=== PATIENT | male | born 1940 | race Caucasian/White ===

== ENCOUNTER 2020-06-08 11:05 | Inpatient (IN) | payer MEDICARE, SELFPAY ==
[2020-06-08] VITALS (24 sets, daily range): BP systolic 88–149; BP diastolic 62–91; PULSE 68–136; RESP 6–27; TEMP 36.3–37.7; O2SAT 83–96; BMI 26.6
--- NOTE | 2020-06-08 11:13 | XR_ITS ---
WS: [id number] Portable AP upright chest, 06/08/2020 Clinical Data: covid Comparison: Portable chest, 01/01/2017. Findings: Bilateral patchy opacities are present which may represent acute pneumonia. No nodules, mas ses or effusions are seen. The heart is normal. The aortic arch and descending aorta show calcificati on and tortuosity. The pulmonary vascularity is not increased. There are 3 orthopedic anchors in the right humeral head. Monitor leads are on the upper abdominal wall and upper chest. XR/XR chest 1V portable [id number] Impression: 1. Patchy bilateral opacities which may represent pneumonia. 2. Recommend repeat chest x-ray in one to 2 days. 3. Atherosclerosis.
--- NOTE | 2020-06-08 11:27 | ED_ITS ---
HPI - SOB/Dyspnea General: Chief Complaint: Shortness of Breath/Dyspnea Stated Complaint: covid + low o2 sent by urgent care Time Seen by Provider: 06/08/20 11:20 Source: patient Mode of arrival: ambulatory Limitations: no limitations History of Present Illness: HPI Narrative: 79-year-old male who tested positive for COVID roughly 2 weeks ago. Patient was is primary care office today had a saturation of 70% on room air. Patient was in the low 80s here on room air and is currently on 6 L. Patient states he has mild shortness of breath along with low-grade fevers. He has had a cough. Denies any worsening or improving factors Associated symptoms: Deny abdominal pain, chest pain, fever(s), nausea or vomiting Review of Systems Const: Denies: fever(s), chills, body aches or change in appetite Eyes: Denies: blurry vision or eye discomfort ENMT: Denies: throat pain or dental pain Card: Denies: chest pain Resp: Reports: dyspnea GI: Denies: abdominal pain, nausea, vomiting or diarrhea : Denies: dysuria Musc: Denies: neck pain or back pain Skin/Breast: Denies: rash Neuro: Denies: headache(s) Psych: Denies: depression Gabriel/Lymph: Denies: easy bruising All/Imm: Denies: urticaria PFSH ED PFSH: Medical History (Updated 06/08/20 @ 13:26 by Ciro Stone MD) Atrial fibrillation Patient is known to have intolerance to oral anticoagulant causing bleeding High risk medication use Hyperlipidemia Hypertension Peripheral arterial occlusive disease Surgical History H/O hernia repair S/P aneurysm repair Family History Other Diabetes Social History Smoking and tobacco status: current every day smoker Alcohol intake: never Physical Exam Const: COMMON NORMALS: patient oriented x3 and healthy appearing GENERAL APPEARANCE: ill appearing HENMT: COMMON NORMALS: normocephalic and atraumatic HEAD & SCALP: normocephalic and atraumatic Eye: COMMON NORMALS: Equal, round and reactive pupils present and EOMs intact bilaterally PUPIL: Yes Equal, round and reactive pupils present Neck/C-Spine: COMMON NORMALS: full ROM and supple Chest: COMMONS NORMALS: normal inspection of the chest and normal palpation of entire chest wall Resp: COMMON NORMALS: No retractions and clear to auscultation bilaterally EFFORT & INSPECTION: Yes tachypneic, Yes respiratory distress and Yes labored AUSCULTATION: clear to auscultation bilaterally Cardio: COMMON NORMALS: regular rate, regular rhythm and No murmurs present (Cardio) RATE: regular rate RHYTHM: regular rhythm GI: COMMON NORMALS: Normal to inspection, nondistended, normoactive bowel sounds present, Soft to palpation, non-tender and no masses PALPATION: Yes Soft to palpation Extremity: COMMON NORMALS: normal to inspection and full ROM Neuro: COMMON NORMALS: patient oriented x3, moves all extremities and no focal motor deficits Psych: COMMON NORMALS: mental status grossly normal, Normal thought process present and cooperative THOUGHT PROCESS: Normal thought process present Skin: COMMON NORMALS: no rashes or lesions noted and no wounds GENERAL SKIN EXAM: no rashes or lesions noted Course Vital Signs: Vital signs: Vital Signs Temperature 99.8 F H 06/08/20 11:16 Pulse Rate 136 H 06/08/20 11:16 Respiratory Rate 20 H 06/08/20 11:16 Blood Pressure 149/91 06/08/20 11:16 Pulse Oximetry 83 L 06/08/20 11:16 MDM - SOB/Dyspnea MDM Narrative: Medical decision making narrative: Patient presents here with dyspnea and is COVID-19 positive. Patient's x-ray shows diffuse infiltrates consistent with COVID. Patient is requiring oxygen here as well. Patient given Decadron along with antiviral. I spoke to hospitalist and will admit to the viral ICU. Lab Data: Labs: Lab Results 06/08/20 06/08/20 06/08/20 Range/Units 11:20 11:47 11:47 WBC 3.5 L (4.0-10.0) 10^3/ uL RBC 4.78 (4.1-5.3) 10^6/u L Hgb 13.9 (11.7-16.6) g/dL Hct 43.8 (42.0-52.0) % MCV 91.6 (80-94) fL MCH 29.1 (28.0-34.0) pg MCHC 31.7 (30.0-36.0) g/dL RDW 14.1 (12.1-15.1) % Plt Count 182 (130-400) 10^3/c mm MPV 11.1 H (7.4-10.4) fL Neut % (Auto) 73.1 % Lymph % (Auto) 15.0 % [place] % (Auto) 11.0 % Eos % (Auto) 0.0 % Baso % (Auto) 0.3 % Neut # (Auto) 2.59 (1.8-7.7) 10^3/u L Lymph # (Auto) 0.5 L (0.8-4.8) 10^3/u L Amite # (Auto) 0.4 (0.2-0.9) 10^3/u L Eos # (Auto) 0.0 (0.0-0.8) 10^3/u L Baso # (Auto) 0.0 (0.0-0.1) 10^3/u L Nucleated RBC % (a uto) 0 % Nucleated RBCs # 0.0 /100WBC Fibrinogen 858 H (174-498) mg/dL Specimen Type Arterial Sample Site Radial, right ABG pH 7.45 (7.35-7.45) ABG pCO2 27.0 L (35-45) mmHg ABG pO2 63.2 L (80.0-100.0) mmH g ABG HCO3 18.8 L (22-26) mmol/L ABG Base Excess -3.7 L (-2.0-2.0) mmol/ L Lb Test Pos Hematocrit 43.5 (42-52) % O2 Delivery Device Nc O2 Liters/Min 6.0 % Beverage Steward ID [place] Sodium (136-145) mmol/L Potassium (3.5-5.1) mmol/L Chloride (98-107) mmol/L Carbon Dioxide (22-29) mmol/L Anion Gap (5-19) BUN (8-23) mg/dL Creatinine (0.7-1.2) mg/dL GFR Calculation Glucose (65-115) mg/dL Calculated Osmolal ity (285-295) mOsm/k g Lactic Acid (0.5-2.2) mmol/L Calcium (8.5-10.5) mg/dL Ferritin (30-400) ng/mL Total Bilirubin (0.15-1.2) mg/dL AST (0-40) U/L ALT (0-41) U/L Alkaline Phosphata se (40-130) IU/L Lactate Dehydrogen ase (135-225) U/L C-Reactive Protein (0.0-4.9) mg/L NT-Pro-B Natriuret Pep (0-450) pg/mL Total Protein (6.6-8.7) g/dL Albumin (3.5-5.2) g/dL Globulin (1.3-4.6) g/dL TSH (0.27-4.20) uIU/ mL 06/08/20 06/08/20 06/08/20 Range/Units 11:47 11:47 11:47 WBC (4.0-10.0) 10^3/ uL RBC (4.1-5.3) 10^6/u L Hgb (11.7-16.6) g/dL Hct (42.0-52.0) % MCV (80-94) fL MCH (28.0-34.0) pg MCHC (30.0-36.0) g/dL RDW (12.1-15.1) % Plt Count (130-400) 10^3/c mm MPV (7.4-10.4) fL Neut % (Auto) % Lymph % (Auto) % Amite % (Auto) % Eos % (Auto) % Baso % (Auto) % Neut # (Auto) (1.8-7.7) 10^3/u L Lymph # (Auto) (0.8-4.8) 10^3/u L Amite # (Auto) (0.2-0.9) 10^3/u L Eos # (Auto) (0.0-0.8) 10^3/u L Baso # (Auto) (0.0-0.1) 10^3/u L Nucleated RBC % (a uto) % Nucleated RBCs # /100WBC Fibrinogen (174-498) mg/dL Specimen Type Sample Site ABG pH (7.35-7.45) ABG pCO2 (35-45) mmHg ABG pO2 (80.0-100.0) mmH g ABG HCO3 (22-26) mmol/L ABG Base Excess (-2.0-2.0) mmol/ L Lb Test Hematocrit (42-52) % O2 Delivery Device O2 Liters/Min % Beverage Steward ID Sodium 139 (136-145) mmol/L Potassium 3.2 L (3.5-5.1) mmol/L Chloride 105 (98-107) mmol/L Carbon Dioxide 21 L (22-29) mmol/L Anion Gap 16.2 (5-19) BUN 19 (8-23) mg/dL Creatinine 1.2 (0.7-1.2) mg/dL GFR Calculation Not Reportable Glucose 131 H (65-115) mg/dL Calculated Osmolal ity 292 (285-295) mOsm/k g Lactic Acid 1.5 (0.5-2.2) mmol/L Calcium 8.3 L (8.5-10.5) mg/dL Ferritin 933 H (30-400) ng/mL Total Bilirubin 0.4 (0.15-1.2) mg/dL AST 34 (0-40) U/L ALT 13 (0-41) U/L Alkaline Phosphata se 69 (40-130) IU/L Lactate Dehydrogen ase 542 H (135-225) U/L C-Reactive Protein 126.6 H (0.0-4.9) mg/L NT-Pro-B Natriuret Pep 483 H (0-450) pg/mL Total Protein 6.7 (6.6-8.7) g/dL Albumin 3.5 (3.5-5.2) g/dL Globulin 3.2 (1.3-4.6) g/dL TSH 0.48 (0.27-4.20) uIU/ mL Imaging Data^: CXR: Radiologist's impression: [address] [place] [address] XRay Report Signed Patient: Joseph Nunn Unit #: [id number] : 1940 Age/Sex: 79 / M ADM Date: 06/08/20 Loc: ER Room/Bed: Attending Dr: Ordering Provider/Ordering MD: Ciro Stone MD Date of Service: 06/08/20 Procedure(s): XR chest 1V portable [id number] Accession Number(s): [id number] Report Number: [id number] WS: [id number] Portable AP upright chest, 06/08/2020 Clinical Data: covid Comparison: Portable chest, 01/01/2017. Findings: Bilateral patchy opacities are present which may represent acute pneumonia. No nodules, masses or effusions are seen. The heart is normal. The aortic arch and descending aorta show calcification and tortuosity. The pulmonary vascularity is not increased. There are 3 orthopedic anchors in the right humeral head. Monitor leads are on the upper abdominal wall and upper chest. XR/XR chest 1V portable [id number] Impression: 1. Patchy bilateral opacities which may represent pneumonia. 2. Recommend repeat chest x-ray in one to 2 days. 3. Atherosclerosis. EKG Data^: EKG 1: Attestation: I personally reviewed and interpreted this EKG as follows: EKG Interpretation Date: 06/08/20 EKG interpretation time: 11:52 Interpretation: afib hr [address] or t wave abnormalities qrs 88 qtc 318 Critical Care Time Critical Care Time: Critical Care Time: Yes Total Critical Care Time: 35 Attestation: This case had a high probability of a clinically significant, sudden, or life threatening deterioration of this patient's condition which required my full and direct attention, intervention and personal management. 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
[2020-06-08 11:33] LABS: ABG PH Result 7.45 (7.35-7.45); Arterial Blood Gas Hematocrit 43.5 % (42-52); Base Excess ABG -3.7 mmol/L (-2.0-2.0); Blood Gas Allen Test Pos; Blood Gas Operator Identificat MONRO; Blood Gas Sample Site Radial, right; Blood Gas Sample Type Arterial; HCO3 ABG 18.8 mmol/L (22-26); Oxygen Device NC; PO2 ABG 63.2 mmHg (80.0-100.0)
[2020-06-08] MEDS: acetaminophen 325 mg Tablet 650 MG PO (11:45)
[2020-06-08] MEDS: dexamethasone 10 mg/mL INJ IVP (11:45)
[2020-06-08 11:57] LABS: Basophils % 0.3 %; Hematocrit 43.8 % (42.0-52.0); Hemoglobin 13.9 g/dL (11.7-16.6); Lymphocytes # 0.5 10^3/uL (0.8-4.8); Mean Corpuscular HGB Conc 31.7 g/dL (30.0-36.0); Mean Corpuscular Hemoglobin 29.1 pg (28.0-34.0); Mean Corpuscular Volume 91.6 fL (80-94); Mean Platelet Volume 11.1 fL (7.4-10.4); Monocytes # 0.4 10^3/uL (0.2-0.9); Neutrophils # 2.59 10^3/uL (1.8-7.7); Neutrophils % 73.1 %; Nucleated Red Blood Cells % 0 %; Platelet Count 182 10^3/cmm (130-400); Red Blood Count 4.78 10^6/uL (4.1-5.3); Red Cell Distribution Width 14.1 % (12.1-15.1); White Blood Count 3.5 10^3/uL (4.0-10.0)
[2020-06-08 12:13] LABS: Fibrinogen 858 mg/dL (174-498)
[2020-06-08 12:17] LABS: Lactic Sepsis W/Reflex 1.5 mmol/L (0.5-2.2)
[2020-06-08 12:27] LABS: Alanine Aminotransferase 13 U/L (0-41); Albumin Level 3.5 g/dL (3.5-5.2); Alkaline Phosphatase 69 IU/L (40-130); Anion Gap 16.2 (5-19); Aspartate Amino Transferase 34 U/L (0-40); Blood Urea Nitrogen 19 mg/dL (8-23); C Reactive Protein 126.6 mg/L (0.0-4.9); Calcium 8.3 mg/dL (8.5-10.5); Carbon Dioxide 21 mmol/L (22-29); Chloride 105 mmol/L (98-107); Ferritin 933 ng/mL (30-400); Globulin 3.2 g/dL (1.3-4.6); Glucose 131 mg/dL (65-115); NT Pro B Type Natriuretic Pept 483 pg/mL (0-450); Osmolality Calculated 292 mOsm/kg (285-295); Potassium 3.2 mmol/L (3.5-5.1); Sodium 139 mmol/L (136-145); Total Bilirubin 0.4 mg/dL (0.15-1.2); Total Protein 6.7 g/dL (6.6-8.7)
--- NOTE | 2020-06-08 12:37 | CT_ITS ---
WS: [id number] CT CHEST ANGIOGRAPHY WITH REFORMATS HISTORY: sob TECHNIQUE: Contiguous axial images are obtained through the chest during arterial injection of intrav enous contrast. Images are reconstructed to evaluate the pulmonary arteries. MIP imaging also reviewe d. All CT scans at [facility] use at least one of these dose optimization techniques: aut omated exposure control; mA and/or kV adjustment per patient size (includes targeted exams where dose is matched to clinical indication); or iterative reconstruction. CONTRAST: Visipaque 320; 95 mL IV. DLP: 567.94 mGy.cm COMPARISON: None available. Good opacification of the pulmonary arteries. No pulmonary embolism through the segmental branches. N ormal size aorta. Atherosclerosis of aorta with no aneurysm. Moderate coronary artery calcifications. Moderate enlargement of the heart chambers. No pericardial effusion. Lungs are hyperinflated. Diffuse groundglass attenuation superimposed on a background of emphysema. N o dense areas of consolidation. Most significant increasing areas of consolidation are posteriorly in the upper lung turner. No pleural effusion. No adenopathy. Cholelithiasis without acute cholecystitis. No adrenal mass. Low-attenuation lesions in the liver are probably cysts. Cysts have been previously described with the largest in the LEFT lobe measuring 1.8 cm. The largest in the RIGHT lobe measures 3.0 cm. Small hiatal hernia. Mild anterior wedging of T12. CT/CT angio chest PE protcl [id number] IMPRESSION: 1. No pulmonary embolism. 2. Mild diffuse groundglass attenuation with increasing consolidations posteri francisca in the upper lung turner consistent with pneumonia. 3. Cholelithiasis. 4. T12 anterior compression fracture, 30%. Stable.
--- NOTE | 2020-06-08 12:38 | PM.HP ---
Providers/Chief Complaint Primary Care Provider: Hardy Connolly MD Chief Complaint: covid + low o2 sent by urgent care History of Present Illness Joseph Nunn is a 79 year old male history of atrial fibrillation, hyperlipidemia, hypertension, PAD who presented to the ER today because of difficulty in breathing. Patient states he has been having similar complaints around 10 to 14 days. He is also been having weakness, lethargic and some muscle ache. He has been having low-grade fever up to 100 Fahrenheit without any chills. He was tested by his primary's office around 10 days ago for COVID-19 and is reportedly positive. Patient went to the urgent care today because of persistent symptoms and was apparently found to be saturating around 70% on room air. When brought to the ER he was saturating in low 80s on room air and required 6 L of oxygen supplementation to keep saturation over 90%. His blood work in the ER showed a white count of 3.5, hemoglobin of 13.9, fibrinogen of 858 ABG showing a PO2 of 63.2 on 6 L nasal cannula, potassium of six 3.2, sodium of 139, creatinine of 1.2, ferritin of 933, LDH of 542, CRP of 126, proBNP of 43, chest x-ray showing bilateral patchy opacities. Review of Systems General: Reports: 10 or more systems reviewed and unremarkable except in HPI and below Const: Reports: fever(s); Denies: chills, body aches, change in appetite, change in weight, malaise, night sweats, diaphoresis, change in sleep pattern, daytime sleepiness or snoring Eyes: Denies: change in vision, blurry vision, photophobia, eye discomfort or eye discharge ENMT: Reports: throat pain; Denies: enlarged tonsils, hoarseness, mouth pain, oral sores, dry mouth, tinnitus, nasal congestion or post nasal drip Card: Denies: chest pain, palpitations, irregular heart rhythm, edema, swelling of feet/ankles, lightheadedness, syncope, pre-syncope, dyspnea on exertion, orthopnea, leg pain with exertion or acrocyanosis Resp: Denies: dyspnea, productive cough, non-productive cough, wheezing, stridor, pain on inspiration, change in phlegm color, hemoptysis or chest congestion GI: Reports: diarrhea; Denies: abdominal pain, nausea, vomiting, hematemesis, coffee ground emesis, dysphagia, heartburn, constipation, bloating, GI cramping, change in bowel habits, pain on defecation, hematochezia or melena : Denies: flank pain, difficulty urinating, dysuria, urinary frequency, urinary urgency, urinary hesitancy, urinary dribbling, difficulty starting urination, change in urine stream, nocturia or hematuria Musc: Denies: neck pain, back pain, extremity pain, joint pain, joint swelling, joint redness, joint stiffness or limited range of motion Neuro: Denies: headache(s), numbness in extremities, weakness in extremities, sensory changes, lack of coordination, difficulty walking, frequent falls, dizziness, vertigo, confusion, Slurred speech present, difficulty communicating thoughts or seizure-like activity Psych: Denies: anxiety, depression, mood swings, panic attacks, hopelessness or irritability Endo: Denies: polyuria, polydipsia, tired all the time, cold intolerance, excessive sweating, flushing or heat intolerance Gabriel/Lymph: Denies: easy bruising or easy bleeding All/Imm: Denies: tongue swelling, facial swelling or acute wheezing Medications/Allergies Home Medications Medication Instructions Recorded Confirmed Last Taken Type aspirin 81 mg tablet,delayed 81 mg PO DAILY 01/24/20 06/08/20 06/08/20 History release cilostazol 100 mg tablet 100 mg PO BID 01/24/20 06/08/20 06/08/20 History metoprolol tartrate 25 mg tablet 12.5 mg PO BID 01/24/20 06/08/20 06/08/20 History simvastatin 20 mg tablet 20 mg PO DAILY 01/24/20 06/08/20 06/08/20 History amiodarone 200 mg tablet 100 mg PO DAILY #15 tab 05/17/20 06/08/20 06/08/20 Rx tamsulosin [Flomax] 0.4 mg PO DAILY 06/08/20 06/08/20 06/08/20 History Allergies Allergy/AdvReac Type Severity Reaction Status Date / Time No Known Allergies Allergy Unverified 11/03/19 12:35 PFSH Acute PFSH: Medical History (Updated 06/08/20 @ 18:04 by Mario Johnson MD) Atrial fibrillation Patient is known to have intolerance to oral anticoagulant causing bleeding High risk medication use Hyperlipidemia Hypertension Peripheral arterial occlusive disease Surgical History H/O hernia repair S/P aneurysm repair Family History Other Diabetes Social History (Updated 06/08/20 @ 18:03 by Mario Johnson MD) Smoking and tobacco status: current every day smoker Alcohol intake: never Household members: spouse Housing: House Vitals/I&O/Wt Last Vital Signs Temp 99.8 F H 06/08/20 11:16 Pulse 136 H 06/08/20 11:16 Resp 20 H 06/08/20 11:16 BP 149/91 06/08/20 11:16 Pulse Ox 83 L 06/08/20 11:16 Weight last 48 hrs Weight 72.575 kg Physical Exam Narrative: EXAM NARRATIVE: General: No acute distress, AO x3, needing 6 L to maintain saturation over 90% HEENT: PERRLA, pupils bilaterally equal and reactive Chest: Bilateral bronchial breath sounds, use, coarse crackles good air entry CVS: S1-S2 regular, no murmurs, no tachycardia, no gallops, no rubs Abdomen: Soft, nontender, no organomegaly, bowel sounds present Neuro: No focal deficits, no facial deformity, AO x3, power 5/5 in all limbs Data : 06/08/20 11:47 06/08/20 11:47 Micro: Microbiology 06/08/20 11:47 Blood Culture - Preliminary Blood SPECIMEN COLLECTED A&P Assessment and plan (1) ARDS (adult respiratory distress syndrome): Status: Acute (2) Hypoxia: Status: Acute (3) COVID-19: Status: Acute (4) Atrial fibrillation: Status: Acute Qualifiers: Atrial fibrillation type: paroxysmal Qualified Code(s): I48.0 - Paroxysmal atrial fibrillation (5) Hypertension: Status: Acute Qualifiers: Hypertension type: essential hypertension Qualified Code(s): I10 - Essential (primary) hypertension (6) Hyperlipidemia: Status: Acute Qualifiers: Hyperlipidemia type: mixed hyperlipidemia Qualified Code(s): E78.2 - Mixed hyperlipidemia Additional A&P Information ARDS: PF ratio 148 suggestive of moderate ARDS. Acute hypoxia because of COVID-19 pneumonia: At least moderate disease as patient is requiring at least 6L of oxygen supplementation to keep saturation over 90%. Continue to monitor inflammatory markers daily. Monitor ferritin level, fibrinogen level, d-dimer level, CRP, LDH daily. CTA chest to rule out pulmonary embolism. Remdesevir for 5-day course, dexamethasone 6 mg IV daily. Would need at least 5-day course. Start patient on vitamin C, zinc, Tessalon Perles. Advair, Spiriva. Anticoagulation with Eliquis 5 mg twice daily. Oxygen supplementation keeping saturation over 90%. Check procalcitonin, MRSA swab, sputum culture, urine Legionella, bacterial antigen, blood culture, urinalysis, urine culture. For now patient is at a low risk for bacterial infection. Start patient on azithromycin 500 daily. Echocardiogram done in 2017 shows an EF of 69% with grade 1 diastolic dysfunction with thickened aortic valve. For now give patient IV Lasix 40 start. Daily weights. Strict input output charting. We will repeat echocardiogram. Hypertension: Goal blood pressure less than 140/90 mmHg. Continue home dose of metoprolol at 12.5 mg twice daily. Atrial fibrillation: Normal sinus rhythm for now. Continue home dose of amiodarone and metoprolol. Patient is not on anticoagulation at home. Getting Eliquis 5 mg twice daily for now. History of PAD: Continue home dose of aspirin, statin, cilostazol. Patient denies of having any claudication at present. Check HbA1c, lipid panel, TSH. Full code. Protonix for PUD prophylaxis Eliquis will help with DVT prophylaxis as well. Admitted viral ICU for further treatment. Attestations Medical Necessity Statement*: More than 2 midnights for ARDS, COVID-19 pneumonia Time Spent in Patient Care: Greater than 35 minutes (>than 50% of time spent in counselling and/or direct pt care on unit). 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
[2020-06-08 13:20] LABS: Lactate Dehydrogenase 542 U/L (135-225); Thyroid Stimulating Hormone 0.48 uIU/mL (0.27-4.20)
[2020-06-08 13:51] LABS: Procalcitonin 0.21 ng/mL (0-0.5)
[2020-06-08 14:02] LABS: Creatine Phosphokinase 54 U/L (39-308); Iron 14 ug/dL (59-158); Percent Saturation 8.5 % (20-50); Total Iron Binding Capacity 164 mcg/dl; Unsaturated Iron Binding 150 ug/dL (112-347)
--- NOTE | 2020-06-08 14:44 | PC.NURSE ---
Report called to Karma CADET.
--- NOTE | 2020-06-08 14:51 | ECG_ITS ---
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 Measurements Intervals [place] Rate: 95 P: MO: -1 QRS: 13 QRSD: 85 T: 28 QT: 305 QTc: 384 Interpretive Statements ATRIAL FIBRILLATION NONSPECIFIC T-WAVE ABNORMALITY ABNORMAL RHYTHM ECG Compared to ECG 01/01/2017 08:31:50 T-wave abnormality now present Sinus rhythm no longer present Electronically Signed On 06-08-2020 19:22:19 CDT by Woody Jacques M.D. [id number]
[2020-06-08] MEDS: iodixanol 320 mg/mL 100mL Btl IV (15:32)
[2020-06-08] MEDS: ferrous gluconate 324 mg Tablet PO (18:35)
[2020-06-08] MEDS: ascorbic acid 500 mg Tablet PO (18:35)
[2020-06-08] MEDS: zinc gluconate 50 mg Tablet PO (18:35)
[2020-06-08] MEDS: potassium chloride ER 10 mEq Tablet 40 MEQ PO ×2 (18:36→22:02)
[2020-06-08] MEDS: apixaban 5 mg Tablet PO (18:36)
[2020-06-08] MEDS: metoprolol tartrate 25 mg Tablet 12.5 MG PO (18:36)
[2020-06-08] MEDS: FUROsemide 10 mg/mL SDV 4mL 40 MG IVP (18:37)
[2020-06-08] MEDS: cefTRIAXone 1,000 MG in sodium chloride 0.9% (plus) 50 ML 100 MG IV (18:38)
[2020-06-08] MEDS: azithromycin 500 MG in sodium chloride 0.9% 250 ML 250 MG IV (18:52)
[2020-06-08] MEDS: famotidine 20 mg/2 mL INJ IVP (22:00)
[2020-06-08] MEDS: cilostazol 100 mg Tablet PO (22:01)
[2020-06-08] MEDS: benzonatate 100 mg Capsule PO (22:01)
[2020-06-09] VITALS (27 sets, daily range): BP systolic 74–126; BP diastolic 49–78; PULSE 63–108; RESP 18–30; TEMP 36.4–36.9; O2SAT 86–99
[2020-06-09 04:53] LABS: ABG PCO2 26.1 mmHg (35-45); ABG PH Result 7.45 (7.35-7.45); Alveolar-Arterial Oxygen Gradi 32.7 mmHg (5-10); Arterial Blood Gas Hematocrit 42.6 % (42-52); Base Excess ABG -4.1 mmol/L (-2.0-2.0); Blood Gas Allen Test Pos; Blood Gas Sample Site Brachial, right; Blood Gas Sample Type Arterial; HCO3 ABG 18.2 mmol/L (22-26); HGB O2 Sat 92.6 % (95-100); Ionized Calcium Level - ABG 1.2 mmol/L (1.1-1.4); Methemoglobin 0.5 % (0.4-1.5); Oxygen Device NC; Oxygen Saturation ABG 93.9; PO2 ABG 59.2 mmHg (80.0-100.0); Potassium Level - ABG 4.1 mmol/L (3.5-5.0); Total Hemoglobin 13.9 g/dL (14-18)
--- NOTE | 2020-06-09 06:00 | XR_ITS ---
WS: [id number] Portable AP upright chest, 06/09/2020 Clinical Data: covid Comparison: Portable chest, 06/08/2020 Findings: Patchy peripheral opacities are present bilaterally and have not changed. No nodules, car s or effusions are seen. The heart is slightly enlarged. The aortic arch and descending aorta are tor tuous. The pulmonary vascularity is not increased. No pneumothorax is seen. Monitor leads are on the chest wall. There are orthopedic anchors in the right humeral head. XR/XR chest 1V portable [id number] Impression: 1. Patchy peripheral opacities bilaterally which probably represent pneumonia u nchanged. 2. Atherosclerosis and mild cardiomegaly.
[2020-06-09 06:51] LABS: SARS Covid-2 Antigen Negative (Negative)
[2020-06-09 06:56] LABS: Hematocrit 46.2 % (42.0-52.0); Hemoglobin 14.7 g/dL (11.7-16.6); Lymphocytes # 0.4 10^3/uL (0.8-4.8); Lymphocytes % 17.3 %; Mean Corpuscular HGB Conc 31.8 g/dL (30.0-36.0); Mean Corpuscular Hemoglobin 28.7 pg (28.0-34.0); Mean Corpuscular Volume 90.1 fL (80-94); Mean Platelet Volume 11.2 fL (7.4-10.4); Monocytes # 0.2 10^3/uL (0.2-0.9); Monocytes % 9.5 %; Neutrophils # 1.76 10^3/uL (1.8-7.7); Neutrophils % 72.4 %; Nucleated Red Blood Cells % 0 %; Platelet Count 201 10^3/cmm (130-400); Red Blood Count 5.13 10^6/uL (4.1-5.3); White Blood Count 2.4 10^3/uL (4.0-10.0)
[2020-06-09 07:26] LABS: Alanine Aminotransferase 19 U/L (0-41); Albumin Level 3.6 g/dL (3.5-5.2); Alkaline Phosphatase 75 IU/L (40-130); Anion Gap 18.1 (5-19); Aspartate Amino Transferase 40 U/L (0-40); Blood Urea Nitrogen 30 mg/dL (8-23); Calcium 8.8 mg/dL (8.5-10.5); Carbon Dioxide 21 mmol/L (22-29); Chloride 106 mmol/L (98-107); Globulin 3.6 g/dL (1.3-4.6); Glucose 170 mg/dL (65-115); Osmolality Calculated 302 mOsm/kg (285-295); Potassium 4.1 mmol/L (3.5-5.1); Sodium 141 mmol/L (136-145); Total Bilirubin 0.4 mg/dL (0.15-1.2); Total Protein 7.2 g/dL (6.6-8.7)
[2020-06-09 07:27] LABS: Fibrinogen 737 mg/dL (174-498)
[2020-06-09 07:28] LABS: C Reactive Protein 98.2 mg/L (0.0-4.9); Creatine Phosphokinase 65 U/L (39-308); Lactate Dehydrogenase 550 U/L (135-225); NT Pro B Type Natriuretic Pept 850 pg/mL (0-450)
[2020-06-09 07:33] LABS: D Dimer 2.56 ug/mIFEU (0-0.59)
[2020-06-09 07:37] LABS: Estmated Average Glucose 137; Hemoglobin A1C 6.4 % (4.0-6.0)
[2020-06-09 07:42] LABS: Ferritin 1057 ng/mL (30-400)
--- NOTE | 2020-06-09 08:26 | PC.RESP ---
SMOKING CESSATION INFORMATION SENT TO PATIENT.
--- NOTE | 2020-06-09 09:18 | PC.SOCIAL ---
Important Medicare Message Reviewed Important Medicare Message with spouse Aracelis over the phone. She understands this right. Copy scanned to chart.
[2020-06-09] MEDS: famotidine 20 mg/2 mL INJ IVP ×2 (09:27→21:21)
[2020-06-09] MEDS: zinc gluconate 50 mg Tablet PO (09:28)
[2020-06-09] MEDS: benzonatate 100 mg Capsule PO ×3 (09:28→21:21)
[2020-06-09] MEDS: aspirin 81 mg EC Tablet PO (09:28)
[2020-06-09] MEDS: ferrous gluconate 324 mg Tablet PO ×2 (09:29→17:16)
[2020-06-09] MEDS: atorvastatin 40 mg Tablet 20 MG PO (09:29)
[2020-06-09] MEDS: apixaban 5 mg Tablet PO ×2 (09:29→17:16)
[2020-06-09] MEDS: amiodarone 200 mg Tablet 100 MG PO (09:29)
[2020-06-09] MEDS: tamsulosin 0.4 mg Capsule PO (09:29)
[2020-06-09] MEDS: cilostazol 100 mg Tablet PO ×2 (09:29→17:16)
[2020-06-09] MEDS: dexamethasone 4 mg/mL INJ 6 MG IVP (09:30)
[2020-06-09] MEDS: ascorbic acid 500 mg Tablet PO (09:30)
[2020-06-09 09:36] LABS: Bilirubin Urine Neg (Negative); Blood Urine 3+ (Negative); Glucose Urine UA Norm (Normal); Ketones Urine Negative (Negative); Leukocyte Esterase Urine Negative (Negative); Nitrate Urine Negative (Negative); Protein Urine 1+ (Negative); Specific Gravity, Urine 1.005 (1.005-1.030); Urine Appearance Clear (CLEAR); Urine Color Yellow (Yellow); Urobilinogen Urine Norm (Negative)
[2020-06-09 09:37] LABS: Add Urine Culture? Yes; Bacteria Urine 1+ /hpf; Mucus Urine 1+ /hpf; RBC Urine 40-50 /hpf (0-2); Squamous Epithelial Cell Urine 0-4 /hpf (0-5); WBC Urine 0-4 /hpf (0-5)
--- NOTE | 2020-06-09 10:35 | P.PN_ITS ---
Subjective Subjective: Interval history: No acute events overnight. Patient is requiring higher amount of oxygen supplementation to keep his saturation over 90%. At present on examination he is requiring 10 L of high flow to maintain saturation of 90% and when I saw him he was in semiprone position and is comfortable. He states he is working with incentive spirometry and flutter valve regularly. He states his energy levels are appropriate and his appetite is good as well. Denies of any nausea, vomiting, headache. Since morning his blood pressures have been running on the lower side with mean arterial pressures mostly around 57-58 he was given a bolus of 1 L IV fluid and normal saline has been started at 75 cc/h. Lantigua catheter has also been placed for strict input output charting. Vitals/I&O/Wt Last Vital Signs Temp 97.7 F 06/09/20 04:45 Pulse 100 06/09/20 10:08 Resp 22 H 06/09/20 10:08 BP 106/78 06/09/20 06:04 Pulse Ox 92 06/09/20 10:08 06/08/20 06/09/20 06/09/20 22:59 06:59 14:59 Intake Total 290 / 290 200 / 490 Output Total 1275 / 1275 375 / 1650 Balance -985 / -985 -175 / -1160 Weight last 48 hrs Weight 52.617 kg Weight 72.575 kg Physical Exam Narrative: EXAM NARRATIVE: General: No acute distress, AO x3, HEENT: PERRLA, pupils bilaterally equal and reactive Chest: Bilateral bronchial breath sounds, use, coarse crackles good air entry CVS: S1-S2 regular, no murmurs, no tachycardia, no gallops, no rubs Abdomen: Soft, nontender, no organomegaly, bowel sounds present Neuro: No focal deficits, no facial deformity, AO x3, power 5/5 in all limbs Data : 06/09/20 05:00 06/09/20 05:00 Micro: Microbiology 06/09/20 08:50 Legionella Urinary Antigen - Final Urine,Clean Catch 06/08/20 13:10 Blood Culture - Preliminary Blood SPECIMEN COLLECTED 06/08/20 11:47 Blood Culture - Preliminary Blood SPECIMEN COLLECTED A&P Assessment and plan (1) Sepsis associated hypotension: Status: Acute (2) ARDS (adult respiratory distress syndrome): Status: Acute (3) Hypoxia: Status: Acute (4) COVID-19: Status: Acute (5) Atrial fibrillation: Status: Acute Qualifiers: Atrial fibrillation type: paroxysmal Qualified Code(s): I48.0 - Paroxysmal atrial fibrillation (6) Hypertension: Status: Acute Qualifiers: Hypertension type: essential hypertension Qualified Code(s): I10 - Essential (primary) hypertension (7) Hyperlipidemia: Status: Acute Qualifiers: Hyperlipidemia type: mixed hyperlipidemia Qualified Code(s): E78.2 - Mixed hyperlipidemia Additional A&P Information ARDS: PF ratio 148 suggestive of moderate ARDS. Acute hypoxia because of COVID-19 pneumonia: Requiring up to 10 L to maintain his oxygen saturation levels normal. Continue to monitor inflammatory markers daily. Monitor ferritin level, fibrinogen level, d-dimer level, CRP, LDH daily. Inflammatory markers worsening today. CTA chest to rule out pulmonary embolism. Remdesevir , dexamethasone 6 mg IV daily. Day 2/5. Start patient on vitamin C, zinc, Tessalon Perles. Advair, Spiriva. Anticoagulation with Eliquis 5 mg twice daily. Oxygen supplementation keeping saturation over 90%. Procalcitonin negative, sputum culture awaited, and urine Legionella and bacterial antigen negative. For now patient is at a low risk for bacterial infection. Start patient on azithromycin 500 daily. Echocardiogram done yesterday shows an EF of 80% with no regional wall motion abnormality with thickened aortic valve without any aortic stenosis. Patient is overall 1 L negative. Blood pressures running on the lower side. We will give him 1 L IV bolus and continue normal saline at 50 cc/h. Daily weights. Strict input output charting. Hypotension: Could be secondary to sepsis. states patient has had low blood pressures even at home. This has been going on for over a year. Patient is asymptomatic. Lantigua catheter for strict input output charting. We will continue to monitor. If required or if the urine output is on the lower side can start patient on Levophed. Hypertension: Goal blood pressure less than 140/90 mmHg. Soft blood pressure. Stop metoprolol for now. Atrial fibrillation: Normal sinus rhythm for now. Continue home dose of amiodarone. Patient is not on anticoagulation at home. Getting Eliquis 5 mg twice daily for now. History of PAD: Continue home dose of aspirin, statin, cilostazol. Patient denies of having any claudication at present. Check HbA1c, lipid panel, TSH. Full code. Protonix for PUD prophylaxis Saulo will help with DVT prophylaxis as well. Patient's care and treatment plan has been discussed with his in detail. All the questions were answered. 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
[2020-06-09] MEDS: sodium chloride 0.9% 1,000 ML 75 ML IV (12:36)
--- NOTE | 2020-06-09 12:36 | PC.NURSE ---
contacted regarding low bp. dr avelar stated he would order Ns at 75. also notified about metoprolol bid and that i held morning dose. no further orders given.
[2020-06-09] MEDS: sodium chloride 0.9% 1,000 ML 999 ML IV (14:11)
--- NOTE | 2020-06-09 15:07 | PC.NURSE ---
md aware of low bp. ordered 1L bolus. bolused and patient bp still low. patient is asymptomatic. md stated to just continue to watch patient.
[2020-06-09] MEDS: azithromycin 500 MG in sodium chloride 0.9% 250 ML 250 MG IV (15:58)
[2020-06-09] MEDS: cefTRIAXone 1,000 MG in sodium chloride 0.9% (plus) 50 ML 100 MG IV (16:30)
--- NOTE | 2020-06-09 18:08 | PC.NURSE ---
aware of liow blood pressure.
--- NOTE | 2020-06-09 18:10 | USCV_ITS ---
Joseph Nunn Age: 79 Gender: M : 1940 Exam Date: 06/09/2020 06:22 Ordering Phys: Mario Johnson MD Technologist: Ying Barros [place] [facility] [place] COVID CAD BP: 105 / 70 HR: 72 Rhythm: Sinus Technical Quality: Adequate MEASUREMENTS (Male / Female) Normal Values 2D ECHO LV Diastolic Diameter PLAX 4.2 cm 4.2 - 5.9 / 3.9 - 5.3 cm LV Systolic Diameter PLAX 2.1 cm LV Chamber Size 3.3 cm IVS Diastolic Thickness 1.0 cm 0.6 - 1.0 / 0.6 - 0.9 cm IVS Systolic Thickness 1.3 cm LVPW Diastolic Thickness 1.3 cm 0.6 - 1.0 / 0.6 - 0.9 cm LVPW Systolic Thickness 1.7 cm RV Chamber Size 2.7 cm LVOT Diameter 2.0 cm LV Ejection Fraction 2D Teich 82.4 % LV Ejection Fraction MOD 2C 46.4 % LV Ejection Fraction 2C AL 48.9 % LA Diameter 4.4 cm LA Width 2.4 cm LA Height 5.1 cm RA Width 2.5 cm RA Height 4.4 cm Aorta at Sinotubular Diameter 2.4 cm M-MODE LV Diastolic Diameter MM 5.0 cm 4.2 - 5.9 / 3.9 - 5.3 cm LV Systolic Diameter MM 2.8 cm LV Ejection Fraction MM Teich 76.1 % IVS Diastolic Thickness MM 0.8 cm 0.6 - 1.0 / 0.6 - 0.9 cm IVS Systolic Thickness MM 1.5 cm LVPW Diastolic Thickness MM 1.2 cm 0.6 - 1.0 / 0.6 - 0.9 cm LVPW Systolic Thickness MM 2.0 cm RV Diastolic Diameter MM 1.1 cm Aortic Annulus Diameter 3.4 cm LA Ao Ratio MM 1.5 MV E Point Septal Separation 0.6 cm DOPPLER AV Peak Velocity 189.0 cm/s LVOT Peak Velocity 121.0 cm/s AV Area Cont Eq vti 1.8 cm squared AV Area Cont Eq pk 2.1 cm squared MV Area PHT 3.5 cm squared Mitral E to A Ratio 1.5 MV E' Velocity 50.5 cm/s Mitral E to MV E' Ratio 12.0 Mitral E to LV E' Lateral Ratio 16.3 Mitral E to LV E' Septal Ratio 9.6 TR Peak Velocity 195.5 cm/s TR Peak Gradient 15.3 mmHg TR Mean Velocity 127.6 cm/s TR Mean Gradient 7.9 mmHg TR Velocity Time Integral 56.9 cm TV Peak E Velocity 82.0 cm/s Right Atrial Pressure 3.0 mmHg Pulmonary Artery Systolic Pressu 18.3 mmHg PV Peak Velocity 90.0 cm/s RV Acceleration Time 0.2 s RV Ejection Time 0.4 s RV AcT/ET 0.5 FINDINGS Left Ventricle Normal left ventricular size and systolic function, EF 80%. No regional wall motion abnormalities. Right Ventricle Normal right ventricular size and systolic function. Right Atrium Possibly of normal Left Atrium Mildly increased left atrial size. Mitral Valve Thickened mitral valve. Mild mitral annular calcification. Aortic Valve Thickened aortic valve. Tricuspid Valve Could not be visualized well Pulmonic Valve Could not be visualized Pericardium No significant pericardial effusion Aorta Normal aortic annulus size. CONCLUSIONS Normal left ventricular size and systolic function, EF 80%. No regional wall motion abnormalities. Mildly increased left atrial size. Thickened mitral valve. Mild mitral annular calcification. No significant pericardial effusion Technically somewhat difficult study Dr Woody Jacques MD FAC (Electronically Signed) Final Date: 09 June 2020 11:14 S
[2020-06-10] VITALS (28 sets, daily range): BP systolic 106–161; BP diastolic 59–99; PULSE 64–100; RESP 13–29; TEMP 36.6–36.8; O2SAT 90–99
[2020-06-10 04:13] LABS: ABG PH Result 7.43 (7.35-7.45); Arterial Blood Gas Hematocrit 39.8 % (42-52); Base Excess ABG -4.6 mmol/L (-2.0-2.0); Blood Gas Allen Test Pos; Blood Gas Sample Site Brachial, right; Blood Gas Sample Type Arterial; Carboxyhemoglobin 0.6 %THgb (0.4-20.1); HCO3 ABG 18.5 mmol/L (22-26); HGB O2 Sat 96.8 % (95-100); Ionized Calcium Level - ABG 1.2 mmol/L (1.1-1.4); Methemoglobin 0.6 % (0.4-1.5); PO2 ABG 89.9 mmHg (80.0-100.0); Potassium Level - ABG 3.5 mmol/L (3.5-5.0)
[2020-06-10] MEDS: sodium chloride 0.9% 1,000 ML 75 ML IV (04:14)
[2020-06-10 04:15] LABS: Alveolar-Arterial Oxygen Gradi 39.3 mmHg (5-10); Oxygen Device BIPAP
[2020-06-10 04:28] LABS: Hematocrit 38.2 % (42.0-52.0); Hemoglobin 12.1 g/dL (11.7-16.6); Lymphocytes # 0.5 10^3/uL (0.8-4.8); Lymphocytes % 7.6 %; Mean Corpuscular HGB Conc 31.7 g/dL (30.0-36.0); Mean Corpuscular Hemoglobin 28.8 pg (28.0-34.0); Mean Platelet Volume 11.6 fL (7.4-10.4); Monocytes # 0.5 10^3/uL (0.2-0.9); Monocytes % 7.6 %; Neutrophils # 5.58 10^3/uL (1.8-7.7); Neutrophils % 84.2 %; Nucleated Red Blood Cells % 0 %; Platelet Count 204 10^3/cmm (130-400); Red Cell Distribution Width 14.3 % (12.1-15.1); White Blood Count 6.6 10^3/uL (4.0-10.0)
[2020-06-10 04:53] LABS: Alanine Aminotransferase 19 U/L (0-41); Albumin Level 3.1 g/dL (3.5-5.2); Alkaline Phosphatase 64 IU/L (40-130); Aspartate Amino Transferase 33 U/L (0-40); Blood Urea Nitrogen 32 mg/dL (8-23); Calcium 7.9 mg/dL (8.5-10.5); Carbon Dioxide 19 mmol/L (22-29); Chloride 110 mmol/L (98-107); Globulin 2.2 g/dL (1.3-4.6); Glucose 170 mg/dL (65-115); Osmolality Calculated 299 mOsm/kg (285-295); Sodium 139 mmol/L (136-145); Total Bilirubin 0.3 mg/dL (0.15-1.2); Total Protein 5.3 g/dL (6.6-8.7)
[2020-06-10 04:57] LABS: Anion Gap 13.7 (5-19); Potassium 3.7 mmol/L (3.5-5.1)
[2020-06-10 05:06] LABS: C Reactive Protein 30.2 mg/L (0.0-4.9); Creatine Phosphokinase 92 U/L (39-308); Ferritin 854 ng/mL (30-400); Lactate Dehydrogenase 402 U/L (135-225); NT Pro B Type Natriuretic Pept 640 pg/mL (0-450)
[2020-06-10 05:07] LABS: D Dimer 1.16 ug/mIFEU (0-0.59)
[2020-06-10 05:11] LABS: Fibrinogen 322 mg/dL (174-498)
--- NOTE | 2020-06-10 07:49 | PC.NURSE ---
Report given to CHICHI Silva in SBAR format
[2020-06-10] MEDS: ferrous gluconate 324 mg Tablet PO ×2 (08:38→15:42)
[2020-06-10] MEDS: apixaban 5 mg Tablet PO ×2 (08:38→15:42)
[2020-06-10] MEDS: cilostazol 100 mg Tablet PO ×2 (08:38→15:42)
[2020-06-10] MEDS: ascorbic acid 500 mg Tablet PO (08:38)
[2020-06-10] MEDS: zinc gluconate 50 mg Tablet PO (08:38)
[2020-06-10] MEDS: amiodarone 200 mg Tablet 100 MG PO (08:38)
[2020-06-10] MEDS: aspirin 81 mg EC Tablet PO (08:38)
[2020-06-10] MEDS: tamsulosin 0.4 mg Capsule PO (08:38)
[2020-06-10] MEDS: atorvastatin 40 mg Tablet 20 MG PO (08:39)
[2020-06-10] MEDS: dexamethasone 4 mg/mL INJ 6 MG IVP (08:39)
[2020-06-10] MEDS: famotidine 20 mg/2 mL INJ IVP ×2 (08:43→21:11)
[2020-06-10] MEDS: benzonatate 100 mg Capsule PO ×3 (09:59→21:11)
--- NOTE | 2020-06-10 11:19 | PC.NURSE ---
report and handoff to CHICHI Tavarez.
--- NOTE | 2020-06-10 15:15 | PM.PN ---
Subjective Subjective: Interval history: Doing better. No acute events overnight. Is requiring 6 L. Have been semiprone position multiple times a day. Working well with incentive spirometry and flutter valve. Energy levels are good and appetite is good as well. Blood pressure is a lot better now. No more fluid boluses required. Vitals/I&O/Wt Last Vital Signs Temp 97.8 F 06/10/20 10:00 Pulse 100 06/10/20 10:00 Resp 16 06/10/20 07:55 BP 136/60 06/10/20 10:00 Pulse Ox 93 06/10/20 10:00 06/10/20 06/10/20 06/10/20 06:59 14:59 22:59 Intake Total 999 / 2029 240 / 240 Output Total 125 / 1150 Balance 875 / 880 240 / 240 Weight last 48 hrs Weight 62.369 kg Weight 52.617 kg Physical Exam Narrative: EXAM NARRATIVE: General: No acute distress, AO x3, HEENT: PERRLA, pupils bilaterally equal and reactive Chest: Bilateral bronchial breath sounds, use, coarse crackles good air entry CVS: S1-S2 regular, no murmurs, no tachycardia, no gallops, no rubs Abdomen: Soft, nontender, no organomegaly, bowel sounds present Neuro: No focal deficits, no facial deformity, AO x3, power 5/5 in all limbs Urinary Catheter Management^: Lantigua: Cath Placed During This Visit: yes Reason for Continuing Indwelling Catheter: Accurate Measurement of Urinary Output in Critically Ill Patients Urinary Catheter Date of Insertion: 06/09/20 Urinary Catheter Time of Insertion: 16:09 Data : 06/10/20 03:55 06/10/20 03:55 Micro: Microbiology 06/09/20 08:50 Urine Culture - Preliminary Urine,Clean Catch 06/08/20 13:10 Blood Culture - Preliminary Blood NEGATIVE TO DATE 06/08/20 11:47 Blood Culture - Preliminary Blood NEGATIVE TO DATE 06/09/20 08:50 Bacterial Antigens - Final Urine,Clean Catch 06/09/20 05:15 MRSA Culture - Final Nose A&P Assessment and plan (1) Sepsis associated hypotension: Status: Acute (2) ARDS (adult respiratory distress syndrome): Status: Acute (3) Hypoxia: Status: Acute (4) COVID-19: Status: Acute (5) Atrial fibrillation: Status: Acute Qualifiers: Atrial fibrillation type: paroxysmal Qualified Code(s): I48.0 - Paroxysmal atrial fibrillation (6) Hypertension: Status: Acute Qualifiers: Hypertension type: essential hypertension Qualified Code(s): I10 - Essential (primary) hypertension (7) Hyperlipidemia: Status: Acute Qualifiers: Hyperlipidemia type: mixed hyperlipidemia Qualified Code(s): E78.2 - Mixed hyperlipidemia Additional A&P Information ARDS: PF ratio 148 suggestive of moderate ARDS. Acute hypoxia because of COVID-19 pneumonia: Requiring up to 10 L to maintain his oxygen saturation levels normal. Continue to monitor inflammatory markers daily. Monitor ferritin level, fibrinogen level, d-dimer level, CRP, LDH daily. Inflammatory markers worsening today. CT ruled out PE. Remdesevir , dexamethasone 6 mg IV daily. Day 3/5. Start patient on vitamin C, zinc, Tessalon Perles. Advair, Spiriva. Anticoagulation with Eliquis 5 mg twice daily. Will need for 2 weeks post discharge. Oxygen supplementation keeping saturation over 90%. Procalcitonin negative, sputum culture awaited, and urine Legionella and bacterial antigen negative. For now patient is at a low risk for bacterial infection. Continue with azithromycin 5 mg oral daily. Day 3 today. Stop after 5 days. Echocardiogram done yesterday shows an EF of 80% with no regional wall motion abnormality with thickened aortic valve without any aortic stenosis. Blood pressure is better. Daily weights. Strict input output charting. Hypotension: Resolved. Could be secondary to sepsis. states patient has had low blood pressures even at home. This has been going on for over a year. Patient is asymptomatic. Lantigua catheter for strict input output charting. Urine output is good. If continues to have good blood pressure can DC Lantigua today. We will continue to monitor. If required or if the urine output is on the lower side can start patient on Levophed. Hypertension: Goal blood pressure less than 140/90 mmHg. Soft blood pressure. Continue holding metoprolol. Atrial fibrillation: Normal sinus rhythm for now. Continue home dose of amiodarone. Patient is not on anticoagulation at home. Getting Eliquis 5 mg twice daily for now. History of PAD: Continue home dose of aspirin, statin, cilostazol. Patient denies of having any claudication at present. Check HbA1c, lipid panel, TSH. Full code. Protonix for PUD prophylaxis Eliquis will help with DVT prophylaxis as well. Patient's care and treatment plan has been discussed with his in detail. All the questions were answered. Attestations Medical Necessity Statement*: ARDS because COVID-19 pneumonia, hypotension resolved Time Spent in Patient Care: Greater than 35 minutes (>than 50% of time spent in counselling and/or direct pt care on unit). 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
[2020-06-10] MEDS: azithromycin 500 MG in sodium chloride 0.9% 250 ML 250 MG IV (15:41)
--- NOTE | 2020-06-10 19:08 | PC.NURSE ---
PT UP AMBULATORY IN HALLWAY. HAS CALLOWAY TIED AROUND HIS WAIST. SEE'S FOG IN HIS ROOM THEN PROCEED'S TO BLOW IT AWAY. DR MAST NOTIFIED. NEW ORDERS RECEIVED.
[2020-06-10 19:17] LABS: ABG PH Result 7.41 (7.35-7.45); Arterial Blood Gas Hematocrit 40.1 % (42-52); Base Excess ABG -7.2 mmol/L (-2.0-2.0); Blood Gas Allen Test Pos; Blood Gas Operator Identificat JB; Blood Gas Sample Site Radial, right; Blood Gas Sample Type Arterial; HCO3 ABG 15.8 mmol/L (22-26)
--- NOTE | 2020-06-10 20:18 | PC.NURSE ---
pt orientated to unit, bed alarm on, charge nurse states there is no sitter at this time, so will continue to monitor patient at doorway
[2020-06-10] MEDS: trazodone 50 mg Tablet PO (21:32)
[2020-06-11] VITALS (24 sets, daily range): BP systolic 119–176; BP diastolic 78–100; PULSE 78–126; RESP 16–50; TEMP 36–36.9; O2SAT 84–99
--- NOTE | 2020-06-11 06:00 | XRR_ITS ---
PROCEDURE INFORMATION: Exam: XR Chest, 1 View Exam date and time: 06/11/2020 5:01 AM Age: 79 years old Clinical indication: Dyspnea; Additional info: Covid TECHNIQUE: Imaging protocol: XR of the chest Views: 1 view. COMPARISON: CR XR chest 1V portable [id number] 06/09/2020 5:47 AM FINDINGS: Lungs: There appears to be a slight improvement in aeration in the right hemithorax compared to 06/09/2020. However, bilateral interstitial and ground-glass infiltrates persist. Pleural space: Unremarkable. No pleural effusion. No pneumothorax. Heart/Mediastinum: Unremarkable. No cardiomegaly. Bones/joints: Unremarkable. XR/XR chest 1V portable [id number] IMPRESSION: There are continued ground-glass and interstitial infiltrates again seen. However, there appears to be a slight improvement in aeration within the right hemithorax.
[2020-06-11 06:23] LABS: Basophils % 0.2 %; Hematocrit 37.5 % (42.0-52.0); Hemoglobin 11.8 g/dL (11.7-16.6); Lymphocytes # 0.4 10^3/uL (0.8-4.8); Lymphocytes % 6.4 %; Mean Corpuscular HGB Conc 31.5 g/dL (30.0-36.0); Mean Corpuscular Hemoglobin 28.7 pg (28.0-34.0); Mean Corpuscular Volume 91.2 fL (80-94); Mean Platelet Volume 11.8 fL (7.4-10.4); Monocytes # 0.7 10^3/uL (0.2-0.9); Monocytes % 10.7 %; Neutrophils # 5.23 10^3/uL (1.8-7.7); Neutrophils % 81.1 %; Nucleated Red Blood Cells % 0 %; Platelet Count 238 10^3/cmm (130-400); Red Blood Count 4.11 10^6/uL (4.1-5.3); Red Cell Distribution Width 14.4 % (12.1-15.1); White Blood Count 6.4 10^3/uL (4.0-10.0)
[2020-06-11 07:05] LABS: C Reactive Protein 12.2 mg/L (0.0-4.9); Creatine Phosphokinase 111 U/L (39-308); Ferritin 607 ng/mL (30-400); Lactate Dehydrogenase 374 U/L (135-225); NT Pro B Type Natriuretic Pept 1685 pg/mL (0-450)
[2020-06-11 07:15] LABS: D Dimer 0.93 ug/mIFEU (0-0.59)
[2020-06-11 07:57] LABS: Fibrinogen 532 mg/dL (174-498)
--- NOTE | 2020-06-11 08:18 | PC.NURSE ---
RECEIVED REPORT FROM CHICHI AVILA. PT DIDN'T SLEEP MUCH LAST NIGHT, WAS UP & PULLED OUT X2 IV. CALLED HIS AT 0400 WANTING TO GO HOME. DENIES ANY PAIN. 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 REDIRECTED PT THAT THERE WEREN'T ANY STUDENTS HERE & THAT IT IS ONLY STAFF HERE. ATE BREAKFAST USED URINAL IS/FLUTTER VALVE DONE. ADVAIR & SPIRIVA DONE.
[2020-06-11 08:47] LABS: Alanine Aminotransferase 20 U/L (0-41); Alkaline Phosphatase 54 IU/L (40-130); Anion Gap 16.7 (5-19); Aspartate Amino Transferase 26 U/L (0-40); Blood Urea Nitrogen 26 mg/dL (8-23); Calcium 8.3 mg/dL (8.5-10.5); Carbon Dioxide 18 mmol/L (22-29); Chloride 111 mmol/L (98-107); Globulin 2.6 g/dL (1.3-4.6); Glucose 201 mg/dL (65-115); Osmolality Calculated 304 mOsm/kg (285-295); Potassium 3.7 mmol/L (3.5-5.1); Sodium 142 mmol/L (136-145); Total Bilirubin 0.4 mg/dL (0.15-1.2); Total Protein 5.6 g/dL (6.6-8.7)
[2020-06-11] MEDS: levoFLOXacin 500 mg Tablet PO (09:08)
[2020-06-11] MEDS: ferrous gluconate 324 mg Tablet PO (09:08)
[2020-06-11] MEDS: apixaban 5 mg Tablet PO (09:09)
[2020-06-11] MEDS: ascorbic acid 500 mg Tablet PO (09:09)
[2020-06-11] MEDS: amiodarone 200 mg Tablet 100 MG PO (09:09)
[2020-06-11] MEDS: benzonatate 100 mg Capsule PO ×2 (09:10→21:50)
[2020-06-11] MEDS: aspirin 81 mg EC Tablet PO (09:10)
[2020-06-11] MEDS: atorvastatin 40 mg Tablet 20 MG PO (09:10)
[2020-06-11] MEDS: cilostazol 100 mg Tablet PO (09:11)
[2020-06-11] MEDS: metoprolol tartrate 25 mg Tablet PO (09:11)
[2020-06-11] MEDS: tamsulosin 0.4 mg Capsule PO (09:11)
[2020-06-11] MEDS: zinc gluconate 50 mg Tablet PO (09:12)
[2020-06-11] MEDS: famotidine 20 mg/2 mL INJ IVP ×2 (09:12→21:50)
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
--- NOTE | 2020-06-11 09:48 | PC.SOCIAL ---
IMM Updated Updated pt's on Pg 2 IMM, via phone. No questions voiced. Signed, dated, & timed copy for chart.
--- NOTE | 2020-06-11 09:51 | PC.NURSE ---
DR MAST HERE TO VISIT PT
[2020-06-11] MEDS: trazodone 50 mg Tablet PO (10:00)
--- NOTE | 2020-06-11 12:05 | P.PN_ITS ---
Subjective Subjective: Interval history: Today morning on examination patient is mildly confused. Overnight as per the nurse he was hallucinating and thought that there is smoke coming in his room. On my examination he is mildly confused to he knows who he is where he is and why he is in the hospital. He is moving all his limbs appropriately and is sitting up at bedside. There is no facial deformity or slurring of the speech. He is requiring 6 L high flow nasal cannula oxygen supplementation to keep his saturation over 90. He denies any nausea, vomiting, headache. His appetite is appropriate. Vitals/I&O/Wt Last Vital Signs Temp 97.1 F L 06/11/20 10:04 Pulse 89 06/11/20 11:10 Resp 18 06/11/20 11:10 BP 153/97 06/11/20 10:04 Pulse Ox 96 06/11/20 11:10 06/10/20 06/11/20 06/11/20 22:59 06:59 14:59 Intake Total 1010 / 1981.25 120 / 120 Output Total 550 / 550 75 / 75 Balance 460 / 1431.25 45 / 45 Weight last 48 hrs Weight 62.256 kg Weight 62.369 kg Physical Exam Narrative: EXAM NARRATIVE: General: No acute distress, AO x3, HEENT: PERRLA, pupils bilaterally equal and reactive Chest: Bilateral bronchial breath sounds, use, coarse crackles good air entry CVS: S1-S2 regular, no murmurs, no tachycardia, no gallops, no rubs Abdomen: Soft, nontender, no organomegaly, bowel sounds present Neuro: No focal deficits, no facial deformity, AO x3, power 5/5 in all limbs Urinary Catheter Management^: Lantigua: Cath Placed During This Visit: yes, but has since been removed by the nurse Reason for Continuing Indwelling Catheter: Decision to DC Catheter Urinary Catheter Date of Insertion: 06/09/20 Urinary Catheter Time of Insertion: 16:09 Date Urinary Catheter Removed: 06/10/20 Time Urinary Catheter Discontinued: 18:35 Data : 06/11/20 03:00 06/11/20 03:00 Micro: Microbiology 06/09/20 08:50 Urine Culture - Final Urine,Clean Catch A&P Assessment and plan (1) Sepsis associated hypotension: Status: Acute (2) ARDS (adult respiratory distress syndrome): Status: Acute (3) Hypoxia: Status: Acute (4) COVID-19: Status: Acute (5) Delirium: Status: Acute (6) Atrial fibrillation: Status: Acute Qualifiers: Atrial fibrillation type: paroxysmal Qualified Code(s): I48.0 - Paroxysmal atrial fibrillation (7) Hypertension: Status: Acute Qualifiers: Hypertension type: essential hypertension Qualified Code(s): I10 - Essential (primary) hypertension (8) Hyperlipidemia: Status: Acute Qualifiers: Hyperlipidemia type: mixed hyperlipidemia Qualified Code(s): E78.2 - Mixed hyperlipidemia Additional A&P Information Delirium: Most likely secondary to ICU delirium along with steroid psychosis. Patient is moving all his limbs appropriately, he is AO x2-3 but has occasional hallucinations since last 24 hours. 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 We will decrease the dose of dexamethasone to 3 mg daily. Unfortunately cannot stop dexamethasone completely because he still requiring good amount of oxygen supplementation to keep saturation over 90%. We will do CT head to rule out any bleed. Patient is on Eliquis at present. Frequent reorientation. One-to-one sitter. Fall precautions. Seizure precautions. Minimal stimulus. Can use Haldol 2 mg IM every 6 hours as needed. Zyprexa 10 mg oral at bedtime. ARDS: PF ratio 148 suggestive of moderate ARDS. Improving. Acute hypoxia because of COVID-19 pneumonia: Oxygen supplementation coming down to 6 L now. Continue to monitor inflammatory markers daily. His inflammatory markers are improving. Monitor ferritin level, fibrinogen level, d-dimer level, CRP, LDH daily. CT ruled out PE. Remdesevir , dexamethasone 6 mg IV daily. Day 4/5. Start patient on vitamin C, zinc, Tessalon Perles. Advair, Spiriva. Because of history of brain bleed in the past for now we will hold off any further anticoagulation. We will continue with home dose of aspirin and cilostazol. Oxygen supplementation keeping saturation over 90%. Procalcitonin negative, sputum culture awaited, and urine Legionella and bacteri al antigen negative. For now patient is at a low risk for bacterial infection. Continue with azithromycin 5 mg oral daily. Day 3 today. Stop after 5 days. Echocardiogram done yesterday shows an EF of 80% with no regional wall motion abnormality with thickened aortic valve without any aortic stenosis. Blood pressure is better. Daily weights. Strict input output charting. Hypotension: Resolved. Could be secondary to sepsis. states patient has had low blood pressures even at home. This has been going on for over a year. Patient is asymptomatic. Lantigua removed yesterday.. Hypertension: Goal blood pressure less than 140/90 mmHg. Blood pressures better now. We will start him on his home dose of metoprolol 25 mg twice daily. Atrial fibrillation: Normal sinus rhythm for now. Heart rate going up in 100s since last night. Most likely because of delirium. We will continue home dose of amiodarone and metoprolol for now. History of PAD: Continue home dose of aspirin, statin, cilostazol. Patient denies of having any claudication at present. Check HbA1c, lipid panel, TSH. Full code. Protonix for PUD prophylaxis Saulo will help with DVT prophylaxis as well. Patient's care and treatment plan has been discussed with his in detail. All the questions were answered. 

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
[2020-06-11] MEDS: haloperidol inj 5 mg/mL INJ 1 mL 2 MG IM (12:25)
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
[2020-06-11] MEDS: OLANZapine 10 mg VIAL 5 MG IM (13:49)
--- NOTE | 2020-06-11 14:04 | PC.NURSE ---
PT ACTIVELY HALLUCINATING, LOOKS TOWARDS HIS LEFT & BEGINS ANSWERING QUESTIONS, REPLIES THAT HE IS TALKING TO HIS , YAIMA. TALKS TO THE GOWNS ON THE WALL BY THE DOORWAY. THEN GRABS AT THE AIR IN FRONT OF HIM & STATES I GOT IT . WILL CONTINUE TO SIT 1-1 WITH PT.
--- NOTE | 2020-06-11 15:06 | PC.NURSE ---
PT REMAINS CONFUSED, HALLUCINATING, PULLING LEADS/WIRES OFF. BELIEVES THAT EKG PATCH IS AN ONION & THEY UPSET HIS STOMACH. PT SWATTING AT STAFF TO KEEP IT FROM TOUCHING HIS SKIN, HE THEN SAYS, WHY DIDN'T YOU SAY IT WAS A STICKER???
--- NOTE | 2020-06-11 16:02 | PC.NURSE ---
Addendum entered by Daysi Younger RN 06/11/20 17:27: PRECEDEX STARTED ORDERED @1630. PT CONTINUES TO BE EASILY AGITATED. HAS GOTTEN HIMSELF DRESSED & IS GOING TO LEAVE. DOESN'T WANT ANY OF HIS MONITORING DEVICES ON. REFUSES TO TAKE HIS EVENING DOSES OF METOPROLOL, PLETAL, FERROUS SULFATE, TESSALON PEARLES, DR MAST AWARE OF CURRENT BEHAVIORS/REFUSAL OF MEDS. SITTER REMAINS AT BEDSIDE. Original Note: SITTER REMAINS AT BEDSIDE D/T PT ACTIVELY HALLUCINATING & NOT FOLLOWING SAFETY INSTRUCTIONS. WANDERS AROUND ROOM. ATTEMPTS TO TAKE THINGS APART IN HIS ROOM. HAS TAKEN HIS CPAP APART, PULLS LINES/LEADS OFF, WILL NOT LEAVE THEM ON. REFUSING TO LEAVE OXYGEN ON. EATING SNACKS AT PRESENT. MSG SENT TO DR MAST.
[2020-06-11] MEDS: dexmedetomidine 400 MCG in sodium chloride 0.9% (100 ml) 100 ML IV (16:30)
[2020-06-11] MEDS: dexamethasone 4 mg/mL INJ 3 MG IVP (17:04)
[2020-06-11] MEDS: haloperidol inj 5 mg/mL INJ 1 mL 1 MG IM (17:22)
--- NOTE | 2020-06-11 18:43 | PC.NURSE ---
REFUSING IV. STATES THAT YOU CAN START IT NEXT WEEK. SEVERAL ATTEMPTS MADE TO REORIENT PT TO HIS CONDITION & IMPORTANCE OF IV. BILAT SOFT RESTRAINTS PLACED ON CLT TO KEEP HIM IN BED & ALLOW US TO START AN IV.
--- NOTE | 2020-06-11 20:21 | PC.NURSE ---
CHANGE OF SHIFT Upon change of shift report, patient had been started on precedex gtt. Patient needed additional IV access due to leaking of initial IV line. IV access established by current nurse and precedex gtt resumed and decreased to 0.2 mcg/hour. Patient still in soft wrist restraints. Patient continues to attempt to get out of bed by putting his legs over side rails and attempting to pull at lines with redirection.
[2020-06-11] MEDS: OLANZapine 10 mg TABLET PO (21:50)
--- NOTE | 2020-06-11 21:59 | PC.NURSE ---
HEART RATE When precedex gtt was increased to 0.3 mcg/kg/hour patient had brief decrease in heart rate to 64 and then increased to 80-90s again. Patient has been in atrial fibrillation since the beginning of the shift. Blood pressure did not decrease and patients heart rate has primarily stayed in a range of 80-110 all night.
--- NOTE | 2020-06-11 23:22 | PC.NURSE ---
BRADYCARDIA Patients precedex gtt was increased to 0.4 mcg/kg/hour due to patient getting agitated and pulling against soft wrist restraints. Patient has been mumbling to himself since the beginning of the shift. Patient had brief 40 second decrease in heart rate to 58. BP was taken and BP was 160/96. Patients heart rate increased to the 70-90s after brief decrease. Patient continues to stay in atrial fibrillation.
[2020-06-12] VITALS (21 sets, daily range): BP systolic 115–177; BP diastolic 64–107; PULSE 51–103; RESP 16–25; TEMP 36.1–36.7; O2SAT 84–97
[2020-06-12] MEDS: haloperidol inj 5 mg/mL INJ 1 mL 1 MG IM ×3 (00:33→10:38)
--- NOTE | 2020-06-12 01:27 | PC.NURSE ---
2ND WANDA EVENT Patient given IM Haldol at 0033. At approximately 0110 patient had a decrease in heart rate to 45-50 for approximately 2 minutes. Patients precedex was decreased to 0.3 mcg/kg/hour and patients blood pressure checked, it was 176/91. Patient was sleeping soundly. With deep sleep, patients heart rate has been decreasing to upper 50s and lower 60s. Will continue to titrate precedex drip accordingly.
--- NOTE | 2020-06-12 03:18 | PC.NURSE ---
HYPERTENSION RN reviewed 06/11 progress note that stated blood pressure goal of 140/90. Notified and reviewed with regional cra physician. No new orders at this time.
[2020-06-12 04:43] LABS: ABG PCO2 32.1 mmHg (35-45); ABG PH Result 7.44 (7.35-7.45); Alveolar-Arterial Oxygen Gradi 24.1 mmHg (5-10); Arterial Blood Gas Hematocrit 42.1 % (42-52); Base Excess ABG -1.3 mmol/L (-2.0-2.0); Blood Gas Allen Test Pos; Blood Gas Sample Site Radial, right; Blood Gas Sample Type Arterial; Carboxyhemoglobin 0.8 %THgb (0.4-20.1); HGB O2 Sat 91.8 % (95-100); Ionized Calcium Level - ABG 1.2 mmol/L (1.1-1.4); Methemoglobin 0.5 % (0.4-1.5); Oxygen Device NC; Oxygen Saturation ABG 93.1; PO2 ABG 61.9 mmHg (80.0-100.0); Potassium Level - ABG 3.8 mmol/L (3.5-5.0); Total Hemoglobin 13.7 g/dL (14-18)
[2020-06-12 05:15] LABS: Basophils % 0.2 %; Lymphocytes # 0.5 10^3/uL (0.8-4.8); Lymphocytes % 8.3 %; Mean Corpuscular HGB Conc 31.7 g/dL (30.0-36.0); Mean Corpuscular Hemoglobin 28.9 pg (28.0-34.0); Mean Corpuscular Volume 91.1 fL (80-94); Mean Platelet Volume 11.2 fL (7.4-10.4); Monocytes # 0.6 10^3/uL (0.2-0.9); Monocytes % 9.5 %; Neutrophils # 4.78 10^3/uL (1.8-7.7); Neutrophils % 79.8 %; Nucleated Red Blood Cells % 0 %; Platelet Count 247 10^3/cmm (130-400); Red Cell Distribution Width 14.3 % (12.1-15.1)
[2020-06-12 05:33] LABS: D Dimer 1.06 ug/mIFEU (0-0.59)
[2020-06-12 05:41] LABS: Alanine Aminotransferase 29 U/L (0-41); Albumin Level 3.4 g/dL (3.5-5.2); Alkaline Phosphatase 69 IU/L (40-130); Anion Gap 15.6 (5-19); Aspartate Amino Transferase 41 U/L (0-40); Blood Urea Nitrogen 21 mg/dL (8-23); Calcium 8.5 mg/dL (8.5-10.5); Carbon Dioxide 22 mmol/L (22-29); Chloride 109 mmol/L (98-107); Globulin 2.5 g/dL (1.3-4.6); Glucose 153 mg/dL (65-115); Osmolality Calculated 302 mOsm/kg (285-295); Potassium 3.6 mmol/L (3.5-5.1); Sodium 143 mmol/L (136-145); Total Bilirubin 0.5 mg/dL (0.15-1.2); Total Protein 5.9 g/dL (6.6-8.7)
[2020-06-12 05:46] LABS: C Reactive Protein 7.7 mg/L (0.0-4.9); Creatine Phosphokinase 265 U/L (39-308); Ferritin 550 ng/mL (30-400); Lactate Dehydrogenase 394 U/L (135-225); NT Pro B Type Natriuretic Pept 1603 pg/mL (0-450)
--- NOTE | 2020-06-12 06:23 | PC.NURSE ---
SHIFT SUMMARY See previous notes regarding bradycardia. A-fib this shift. Patient has been hypertensive. Physician notified. See hypertension note. Patient has been talking to himself for most of night while awake, but has been easily redirected and reorientated. Patient is currently on 0.2 mcg/kg/hour of precedex and is resting quietly in bed. Patient continues on 6L high flow nasal cannula and has been averaging an oxygen saturation between 92-94%. Patient has had 1155 mL urine output this shift with one instance of incontinence while sleeping and saturated brief. Patient has been bathed and had linens changed. Received IM Haldol twice and bedtime zyprexa last night. Last Haldol administration at 0635.
[2020-06-12] MEDS: levoFLOXacin 500 mg Tablet PO (06:43)
[2020-06-12] MEDS: aspirin 81 mg EC Tablet PO (08:13)
[2020-06-12] MEDS: tamsulosin 0.4 mg Capsule PO (08:13)
[2020-06-12] MEDS: benzonatate 100 mg Capsule PO ×2 (08:13→20:42)
[2020-06-12] MEDS: metoprolol tartrate 25 mg Tablet PO (08:13)
[2020-06-12] MEDS: ascorbic acid 500 mg Tablet PO (08:13)
[2020-06-12] MEDS: atorvastatin 40 mg Tablet 20 MG PO (08:13)
[2020-06-12] MEDS: zinc gluconate 50 mg Tablet PO (08:13)
[2020-06-12] MEDS: amiodarone 200 mg Tablet 100 MG PO (08:16)
[2020-06-12] MEDS: famotidine 20 mg/2 mL INJ IVP ×2 (08:17→20:42)
[2020-06-12] MEDS: cilostazol 100 mg Tablet PO ×2 (08:17→17:53)
[2020-06-12] MEDS: ferrous gluconate 324 mg Tablet PO ×2 (09:33→17:54)
--- NOTE | 2020-06-12 12:10 | CT_ITS ---
WS: [id number] CT HEAD TECHNIQUE: Noncontrast CT of the head obtained from the skullbase to the vertex. CLINICAL INFORMATION: ams COMPARISON: 4 26,017 DLP: 2185.[address] scans at [facility] use at least one of these dose optimization techniques: automat ed exposure control; mA and/or kV adjustment per patient size (includes targeted exams where dose is matched to clinical indication); or iterative reconstruction. FINDINGS: No evidence of intracranial hemorrhage or mass effect. Ventricular system and basal cisterns are khan nt. Mild small vessel changes with moderate parenchymal volume loss. 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 Prior postoperative changes left frontal parietal and temporal craniotomy. 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 Paranasal sinuses and mastoid air cells are well aerated. .Normal visualized soft tissues. CT/CT head wo con* [id number] IMPRESSION: 1. No evidence of intracranial hemorrhage or mass effect. 2. Prior left temporal craniotomy with left anterior temporal encephalomalacia . 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 3. Mild small vessel changes. Moderate parenchymal volume loss. 4. No significant interval changes.
--- NOTE | 2020-06-12 13:56 | PM.PN ---
Subjective Subjective: Interval history: Currently on 6 L nasal cannula, saturating in the low 90s, vital signs otherwise stable, afebrile. Inflammatory markers overall trending down, noted ABG with PO2 of 61.9. Slight increase in d-dimer from 0.93->1.06. On day 5 of Remdesevir. Remains quite confused, was up most of the night per nursing staff and much of the day. During my visit has just fallen asleep, one-on-one sitter at bedside, remains on Precedex @ 0.4 mcg/kg/hr and did require a dose of Haldol earlier, bilateral upper extremity restraints on. Updated Aracelis Nunn over the phone. Medications: Reviewed: Yes Medication Review Details: Active Medications Generic Name Dose Route Start Last Admin Trade Name Freq PRN Reason Stop Dose Admin Acetaminophen 650 mg 06/08/20 17:54 Tylenol PO Q6H PRN Mild/Mod Pain Or Temp >/= 101 Amiodarone HCl 100 mg 06/09/20 09:00 06/12/20 08:16 Cordarone PO 100 mg DAILY MARGARITA Administration Ascorbic Acid 500 mg 06/08/20 17:00 06/12/20 08:13 Vitamin C PO 500 mg DAILY MARGARITA Administration Aspirin 81 mg 06/09/20 09:00 06/12/20 08:13 Aspirin Ec PO 81 mg DAILY MARGARITA Administration Atorvastatin Calci um 20 mg 06/09/20 09:00 06/12/20 08:13 Lipitor PO 20 mg DAILY MARGARITA Administration Benzonatate 100 mg 06/08/20 21:00 06/12/20 08:13 Tessalon Pearls PO 100 mg TID MARGARITA Administration Bisacodyl 10 mg 06/08/20 17:54 Dulcolax PO DAILY PRN CONSTIPATION Cilostazol 100 mg 06/08/20 18:00 06/12/20 08:17 Pletal PO 100 mg BID MARGARITA Administration Dexamethasone 3 mg 06/11/20 17:15 06/11/20 17:04 Decadron IVP 3 mg Q24H MARGARITA Administration Famotidine 20 mg 06/09/20 09:30 06/12/20 08:17 Pepcid Inj IVP 20 mg Q12H MARGARITA Administration Ferrous Gluconate 324 mg 06/08/20 18:00 06/12/20 09:33 Ferrous Gluconat e PO 324 mg BIDWM MARGARITA Administration Haloperidol Lactat e 1 mg 06/11/20 12:20 06/12/20 10:38 Haldol Inj IM 1 mg Q4H PRN Administration AGITATION remdesivir (EUA) 1 00 mg/ 100 mls @ 100 mls /hr 06/09/20 13:00 06/12/20 13:38 Sodium Chloride IV 06/12/20 13:59 100 mls/hr Q24H MARGARITA Administration Sodium Chloride 1,000 mls @ 75 ml s/hr 06/09/20 12:30 06/10/20 13:59 Sodium Chloride 0.9% IV 0 mls/hr .[id number] MARGARITA Infusion Dexmedetomidine HC l 400 mcg/ 104 mls @ 0 mls/h r 06/11/20 16:15 06/12/20 13:43 Sodium Chloride IV 0.4 mcg/kg/hr .Q0M MARGARITA 6.5 mls/hr Titration Protocol Per Protocol Lactulose 10 gm 06/08/20 17:54 Constulose PO DAILY PRN CONSTIPA Levofloxacin 500 mg 06/11/20 08:15 06/12/20 06:43 Levaquin PO 500 mg DAILY@0600 MARGARITA Administration Protocol Metoprolol Tartrat e 25 mg 06/11/20 09:00 06/12/20 08:13 Lopressor PO 25 mg BID MARGARITA Administration Olanzapine 10 mg 06/11/20 21:00 06/11/20 21:50 Zyprexa PO 10 mg BEDTIME MARGARITA Administration Ondansetron HCl 4 mg 06/08/20 17:54 Zofran IVP Q8H PRN vomiting, or N/V if npo Fluticasone/Salmet alvaro 1 puff 06/08/20 20:00 06/12/20 07:30 Advair Diskus 25 0-50 INHALATION 1 puff BID.RESPIRATORY S [facility] Administration Tamsulosin HCl 0.4 mg 06/09/20 09:00 06/12/20 08:13 Flomax PO 0.4 mg DAILY MARGARITA Administration Tiotropium [place] 18 mcg 06/09/20 08:00 06/12/20 07:30 Spiriva INHALATION 1 puff DAILY.RESPIRATORY MARGARITA Administration Zinc Gluconate 50 mg 06/08/20 17:00 06/12/20 08:13 Zinc Gluconate PO 50 mg DAILY MARGARITA Administration No Known Allergies Allergy (Unverified 11/03/19 12:35) Vitals/I&O/Wt Last Vital Signs Temp 97.6 F 06/12/20 12:00 Pulse 82 06/12/20 12:00 Resp 20 H 06/12/20 12:00 BP 137/96 06/12/20 12:00 Pulse Ox 91 06/12/20 12:00 06/11/20 06/12/20 06/12/20 22:59 06:59 14:59 Intake Total 262.812 / 602.812 25.170 / 627.982 516.632 / 516.632 Output Total 210 / 285 1395 / 1680 325 / 325 Balance 52.812 / 317.812 -1369.830 / -1052.018 191.632 / 191.632 Weight last 48 hrs Weight 62.142 kg Weight 62.256 kg Physical Exam Const: COMMON NORMALS: no acute distress OTHER: -asleep HENMT: COMMON NORMALS: normocephalic and atraumatic HEAD & SCALP: normocephalic and atraumatic Neck/C-Spine: COMMON NORMALS: full ROM GENERAL: Yes normal visual inspection and Yes trachea midline Resp: COMMON NORMALS: No retractions and No use of accessory muscles EFFORT & INSPECTION: Yes symmetric chest movement and Yes tachypneic (intermittently) AUSCULTATION: diminished lung sounds OTHER: -intermittently hypoxic, on 6 L NC Cardio: COMMON NORMALS: regular rate, regular rhythm, S1 normal heart sound present, S2 normal heart sound present and No murmurs present (Cardio) RATE: regular rate RHYTHM: regular rhythm HEART SOUNDS: S1 normal heart sound present and S2 normal heart sound present GI: COMMON NORMALS: Normal to inspection, nondistended, normoactive bowel sounds present, Soft to palpation and non-tender PALPATION: Yes Soft to palpation Extremity: COMMON NORMALS: normal to inspection, no clubbing, cyanosis or edema and no pedal edema NARRATIVE EXTREMITY EXAM: -bilateral UE soft restraints in place Neuro: SENSORIUM/ORIENTATION: Yes fluctuating sensorium Skin: COMMON NORMALS: no rashes or lesions noted, no jaundice, no petechiae and no mottling GENERAL SKIN EXAM: no rashes or lesions noted Urinary Catheter Management^: Lantigua: Cath Placed During This Visit: yes, but has since been removed by the nurse Reason for Continuing Indwelling Catheter: Decision to DC Catheter Urinary Catheter Date of Insertion: 06/09/20 Urinary Catheter Time of Insertion: 16:09 Date Urinary Catheter Removed: 06/10/20 Time Urinary Catheter Discontinued: 18:35 Data : 06/12/20 04:17 06/12/20 04:17 Micro: Microbiology 06/09/20 08:50 Urine Culture - Final Urine,Clean Catch A&P Assessment and plan (1) COVID-19: -Found to be positive for COVID-19 at outside facility, rapid testing here negative -Isolation precautions -Continue supportive care including zinc, vitamin C, supplemental oxygen support, dexamethasone, inhaler treatments -Close monitoring of respiratory status -Continue to monitor vital signs -Overall downward trend in inflammatory markers -Wean off supplemental oxygen as tolerated, home oxygen evaluation if appropriate prior to discharge -Telemetry monitoring -Day 5 of Remdesevir today Status: Acute (2) Delirium: -Suspicious for ICU delirium with component of steroid psychosis -On lower dose of dexamethasone -Reorient as needed, strict fall precautions -Precedex drip, Haldol, Ativan as needed, sitter as needed Status: Acute (3) Hypoxia: -Noted above Status: Acute (4) ARDS (adult respiratory distress syndrome): -Some improvement on imaging done on 06/11 -Treatment of infection as noted above Status: Acute (5) Atrial fibrillation: -Telemetry monitoring, continue to monitor vital signs -Echo done shows ejection fraction of 80% -On amiodarone and metoprolol -Has been unable to tolerate anticoagulation in the past, follows up with Dr. Jacques Status: Chronic Qualifiers: Atrial fibrillation type: unspecified Qualified Code(s): I48.91 - Unspecified atrial fibrillation (6) Hypertension: -Continue to monitor vital signs -Continue oral antihypertensives Status: Chronic Qualifiers: Hypertension type: essential hypertension Qualified Code(s): I10 - Essential (primary) hypertension (7) Hyperlipidemia: -on statin Status: Chronic Qualifiers: Hyperlipidemia type: mixed hyperlipidemia Qualified Code(s): E78.2 - Mixed hyperlipidemia Additional A&P Information -History of prior intracranial hemorrhage status post aneurysm clipping. Head CT negative for acute hemorrhage, noted encephalomalacia -History of peripheral vascular disease; continue aspirin, statin, cilostazol -cardiac diet as tolerated -GI ppx with famotidine -DVT ppx with Eliquis -Dispo: home -Code status: FULL code -updated Aracelis Nunn ([phone]) over the phone on patient's clinical status Attestations Medical Necessity Statement*: Patient requires hospitalization for continued management of COVID-19 infection, delirium, weaning oxygen requirement. Time Spent in Patient Care: Greater than 35 minutes (>than 50% of time spent in counselling and/or direct pt care on unit). Coding Level of Care Code Acute Shredding Machine Tender for Chg Fwd 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
[2020-06-12] MEDS: dexmedetomidine 400 MCG in sodium chloride 0.9% (100 ml) 100 ML 6.5 MCG IV (17:00)
[2020-06-12] MEDS: dexamethasone 4 mg/mL INJ 3 MG IVP (17:53)
[2020-06-12] MEDS: apixaban 5 mg Tablet 2.5 MG PO (17:53)
[2020-06-12] MEDS: OLANZapine 10 mg TABLET PO (20:42)
[2020-06-13] VITALS (52 sets, daily range): BP systolic 80–157; BP diastolic 56–101; PULSE 50–165; RESP 12–30; TEMP 36–36.9; O2SAT 91–100
--- NOTE | 2020-06-13 02:06 | PC.NURSE ---
SLEEP Patient has been sleeping since 2199 this shift. Patient has been calm when awake and resting well since he has fallen asleep.
--- NOTE | 2020-06-13 04:48 | PC.NURSE ---
GTT SHUT OFF Patient was asked if he knew where he was, what year it was, who the President was and why he was in the hospital. Patient alert and oriented x 4. Patient was instructed that nurse would take soft wrist restraints off and patient verbalized that he would not attempt to pull out his IV's and would be cooperative. Wrist restraints taken off. Patient has been sleeping most of shift and has been very cooperative. Precedex gtt on hold at this time to evaluate how patient will do. As of now patient is resting in bed with eyes closed.
[2020-06-13] MEDS: levoFLOXacin 500 mg Tablet PO (05:42)
--- NOTE | 2020-06-13 06:00 | XR_ITS ---
WS: [id number] CHEST XRAY TECHNIQUE: Portable chest. CLINICAL INFORMATION: covid COMPARISON: June 11, 2020 FINDINGS: Shallow inspiration. Heart: Normal cardiac silhouette. Lungs: Patchy interstitial infiltrates in both midlungs progressed since June 11, 2020 worse in th e right. Recommend correlation for pneumonia. Chronic emphysema. Bones: Right rotator cuff anchors. XR/XR chest 1V portable [id number] IMPRESSION: Progressed bilateral mid lung infiltrates worse in the right. Recommend correla tion for pneumonia.
[2020-06-13 06:38] LABS: Creatine Phosphokinase 101 U/L (39-308); Ferritin 525 ng/mL (30-400); Lactate Dehydrogenase 382 U/L (135-225); NT Pro B Type Natriuretic Pept 1873 pg/mL (0-450)
[2020-06-13 06:44] LABS: D Dimer 1.26 ug/mIFEU (0-0.59)
--- NOTE | 2020-06-13 06:58 | PC.NURSE ---
ACTIVITY Patient has been out of soft wrist restraints since approximately 0500 and precedex gtt shut off at that time. Patient has been calm and cooperative and not pulling at lines or trying to get out of bed. Will continue to monitor.
[2020-06-13] MEDS: zinc gluconate 50 mg Tablet PO (10:23)
[2020-06-13] MEDS: atorvastatin 40 mg Tablet 20 MG PO (10:23)
[2020-06-13] MEDS: apixaban 5 mg Tablet 2.5 MG PO ×2 (10:24→18:45)
[2020-06-13] MEDS: tamsulosin 0.4 mg Capsule PO (10:24)
[2020-06-13] MEDS: ascorbic acid 500 mg Tablet PO (10:24)
[2020-06-13] MEDS: aspirin 81 mg EC Tablet PO (10:24)
[2020-06-13] MEDS: amiodarone 200 mg Tablet 100 MG PO (10:25)
[2020-06-13] MEDS: metoprolol tartrate 25 mg Tablet PO (10:25)
[2020-06-13] MEDS: benzonatate 100 mg Capsule PO ×3 (10:25→22:00)
[2020-06-13] MEDS: ferrous gluconate 324 mg Tablet PO ×2 (10:26→18:46)
[2020-06-13] MEDS: famotidine 20 mg/2 mL INJ IVP ×2 (10:27→22:00)
[2020-06-13] MEDS: cilostazol 100 mg Tablet PO ×2 (10:27→18:46)
--- NOTE | 2020-06-13 11:46 | PM.PN ---
Subjective Subjective: Interval history: Precedex drip and soft wrist restraints discontinued around 5 AM this morning. Intermittently tachycardic and tachypneic, on 4 L high flow nasal cannula. Noted worsening opacities on repeat chest x-ray this morning. No Haldol required since yesterday. Sitter discontinued as well. He is sitting up in bed, awake, alert, speech is more coherent, easy to engage in conversation, answers questions appropriately. Inquires about when he gets to go home. Medications: Reviewed: Yes Medication Review Details: Active Medications Generic Name Dose Route Start Last Admin Trade Name Freq PRN Reason Stop Dose Admin Acetaminophen 650 mg 06/08/20 17:54 Tylenol PO Q6H PRN Mild/Mod Pain Or Temp >/= 101 Amiodarone HCl 100 mg 06/09/20 09:00 06/13/20 10:25 Cordarone PO 100 mg DAILY MARGARITA Administration Apixaban 2.5 mg 06/12/20 18:00 06/13/20 10:24 Eliquis PO 2.5 mg BID MARGAIRTA Administration Ascorbic Acid 500 mg 06/08/20 17:00 06/13/20 10:24 Vitamin C PO 500 mg DAILY MARGARITA Administration Aspirin 81 mg 06/09/20 09:00 06/13/20 10:24 Aspirin Ec PO 81 mg DAILY MARGARITA Administration Atorvastatin Calci um 20 mg 06/09/20 09:00 06/13/20 10:23 Lipitor PO 20 mg DAILY MARGARITA Administration Benzonatate 100 mg 06/08/20 21:00 06/13/20 10:25 Tessalon Pearls PO 100 mg TID MARGARITA Administration Bisacodyl 10 mg 06/08/20 17:54 Dulcolax PO DAILY PRN CONSTIPATION Cilostazol 100 mg 06/08/20 18:00 06/13/20 10:27 Pletal PO 100 mg BID MARGARITA Administration Dexamethasone 3 mg 06/11/20 17:15 06/12/20 17:53 Decadron IVP 3 mg Q24H MARGARITA Administration Famotidine 20 mg 06/09/20 09:30 06/13/20 10:27 Pepcid Inj IVP 20 mg Q12H MARGARITA Administration Ferrous Gluconate 324 mg 06/08/20 18:00 06/13/20 10:26 Ferrous Gluconat e PO 324 mg BIDWM MARGARITA Administration Haloperidol Lactat e 1 mg 06/11/20 12:20 06/12/20 10:38 Haldol Inj IM 1 mg Q4H PRN Administration AGITATION Sodium Chloride 1,000 mls @ 75 ml s/hr 06/09/20 12:30 06/10/20 13:59 Sodium Chloride 0.9% IV 0 mls/hr .[id number] MARGARITA Infusion Dexmedetomidine HC l 400 mcg/ 104 mls @ 0 mls/h r 06/11/20 16:15 06/13/20 05:00 Sodium Chloride IV 0 mcg/kg/hr .Q0M MARGARITA 0 mls/hr Titration Protocol Per Protocol Lactulose 10 gm 06/08/20 17:54 Constulose PO DAILY PRN CONSTIPA Levofloxacin 500 mg 06/11/20 08:15 06/13/20 05:42 Levaquin PO 500 mg DAILY@0600 MARGARITA Administration Protocol Metoprolol Tartrat e 25 mg 06/11/20 09:00 06/13/20 10:25 Lopressor PO 25 mg BID MARGARITA Administration Olanzapine 10 mg 06/11/20 21:00 06/12/20 20:42 Zyprexa PO 10 mg BEDTIME MARGARITA Administration Ondansetron HCl 4 mg 06/08/20 17:54 Zofran IVP Q8H PRN vomiting, or N/V if npo Fluticasone/Salmet alvaro 1 puff 06/08/20 20:00 06/13/20 10:03 Advair Diskus 25 0-50 INHALATION 1 puff BID.RESPIRATORY S CH Administration Tamsulosin HCl 0.4 mg 06/09/20 09:00 06/13/20 10:24 Flomax PO 0.4 mg DAILY MARGARITA Administration Tiotropium [place] 18 mcg 06/09/20 08:00 06/13/20 10:03 Spiriva INHALATION 1 puff DAILY.RESPIRATORY MARGARITA Administration Zinc Gluconate 50 mg 06/08/20 17:00 06/13/20 10:23 Zinc Gluconate PO 50 mg DAILY MARGARITA Administration No Known Allergies Allergy (Unverified 11/03/19 12:35) Vitals/I&O/Wt Last Vital Signs Temp 98.0 F 06/13/20 05:36 Pulse 102 H 06/13/20 11:00 Resp 21 H 06/13/20 11:00 BP 157/80 06/13/20 11:00 Pulse Ox 93 06/13/20 11:00 06/12/20 06/13/20 06/13/20 22:59 06:59 14:59 Intake Total 339.386 / 856.018 289.600 / 1145.618 Output Total 490 / 815 420 / 1235 Balance -150.614 / 41.018 -130.400 / -89.382 Weight last 48 hrs Weight 53.977 kg Weight 62.142 kg Physical Exam Const: COMMON NORMALS: no acute distress, patient oriented x3 and alert GENERAL APPEARANCE: cooperative and comfortable ORIENTATION/CONSCIOUSNESS: Yes awake HENMT: COMMON NORMALS: normocephalic and atraumatic HEAD & SCALP: normocephalic and atraumatic Eye: COMMON NORMALS: Equal, round and reactive pupils present, EOMs intact bilaterally and conjunctivae normal CONJUNCTIVA: Yes conjunctivae normal PUPIL: Yes Equal, round and reactive pupils present Neck/C-Spine: COMMON NORMALS: full ROM GENERAL: Yes normal visual inspection and Yes trachea midline Resp: COMMON NORMALS: No retractions and No use of accessory muscles EFFORT & INSPECTION: Yes symmetric chest movement and Yes tachypneic (intermittently) AUSCULTATION: diminished lung sounds OTHER: -intermittently hypoxic, on 4 L high-flow NC Cardio: COMMON NORMALS: regular rate, regular rhythm, S1 normal heart sound present, S2 normal heart sound present and No murmurs present (Cardio) RATE: regular rate RHYTHM: regular rhythm HEART SOUNDS: S1 normal heart sound present and S2 normal heart sound present GI: COMMON NORMALS: Normal to inspection, nondistended, normoactive bowel sounds present, Soft to palpation and non-tender PALPATION: Yes Soft to palpation Extremity: COMMON NORMALS: normal to inspection, no clubbing, cyanosis or edema and no pedal edema Neuro: COMMON NORMALS: patient oriented x3, moves all extremities, no focal motor deficits and no sensory deficits noted SENSORIUM/ORIENTATION: Yes alert Psych: COMMON NORMALS: mental status grossly normal, Normal thought process present, cooperative, normal affect and speech normal SPEECH: Yes normal speech THOUGHT PROCESS: Normal thought process present Skin: COMMON NORMALS: no rashes or lesions noted, no jaundice, no petechiae and no mottling GENERAL SKIN EXAM: no rashes or lesions noted Urinary Catheter Management^: Lantigua: Cath Placed During This Visit: yes, but has since been removed by the nurse Reason for Continuing Indwelling Catheter: Decision to DC Catheter Urinary Catheter Date of Insertion: 06/09/20 Urinary Catheter Time of Insertion: 16:09 Date Urinary Catheter Removed: 06/10/20 Time Urinary Catheter Discontinued: 18:35 Data : 06/12/20 04:17 06/12/20 04:17 A&P Assessment and plan (1) COVID-19: -Found to be positive for COVID-19 at outside facility, rapid testing here negative -Isolation precautions -Continue supportive care including zinc, vitamin C, supplemental oxygen support, inhaler treatments. Steroids discontinued due to concern for steroid-induced psychosis -Close monitoring of respiratory status -Continue to monitor vital signs -Overall downward trend in inflammatory markers -Wean off supplemental oxygen as tolerated, home oxygen evaluation if appropriate prior to discharge -Telemetry monitoring -completed 5 days of Remdesevir Status: Acute (2) Delirium: -Suspicious for ICU delirium with component of steroid psychosis -off dexamethasone, significant improvement in mental status today -Reorient as needed, strict fall precautions -Precedex drip and UE restraints discontinued this AM, no Haldol required since yesterday, sitter as needed Status: Acute (3) Hypoxia: -Noted above; improving Status: Acute (4) ARDS (adult respiratory distress syndrome): -worsening findings on imaging today -Treatment of infection as noted above Status: Acute (5) Atrial fibrillation: -Telemetry monitoring, continue to monitor vital signs -Echo done shows ejection fraction of 80% -On amiodarone and metoprolol -Has been unable to tolerate anticoagulation in the past, follows up with Dr. Jacques Status: Chronic Qualifiers: Atrial fibrillation type: unspecified Qualified Code(s): I48.91 - Unspecified atrial fibrillation (6) Hypertension: -Continue to monitor vital signs -Continue oral antihypertensives Status: Chronic Qualifiers: Hypertension type: essential hypertension Qualified Code(s): I10 - Essential (primary) hypertension (7) Hyperlipidemia: -on statin Status: Chronic Qualifiers: Hyperlipidemia type: mixed hyperlipidemia Qualified Code(s): E78.2 - Mixed hyperlipidemia Additional A&P Information -History of prior intracranial hemorrhage status post aneurysm clipping. Head CT negative for acute hemorrhage, noted encephalomalacia -History of peripheral vascular disease; continue aspirin, statin, cilostazol -Physical deconditioning due to acute illness, PT evaluation requested, strict fall precautions -cardiac diet as tolerated -GI ppx with famotidine -DVT ppx with Eliquis -Dispo: home -Code status: FULL code -updated Aracelis Nunn ([phone]) over the phone on patient's clinical status Attestations Medical Necessity Statement*: Patient requires hospitalization for continued treatment of COVID-19 infection with pneumonia and ARDS, encephalopathy which is improving, as well as physical deconditioning. Time Spent in Patient Care: 16 - 35 minutes (>than 50% of time spent in counselling and/or direct pt care on unit). Coding Level of Care Code Acute Certified Green Building Engineer for g Fwd 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
--- NOTE | 2020-06-13 11:56 | DCPLANNER ---
Pg 2 of IM updated and reviewed with Spouse; Aracelis via the phone. No questions but comments that she did get to talk with him on the phone and was glad for that.
[2020-06-13] MEDS: metoprolol tartrate 50 mg Tablet PO (18:45)
--- NOTE | 2020-06-13 23:00 | PC.NURSE ---
ZYPREXA ORDER Patient has been alert and oriented this shift and has been sleeping soundly and using call light appropriately. Physician order to stop the scheduled order of bedtime zyprexa as it is not indicated anymore per patient behavior. Physician order for nurse to change order to PRN instead of scheduled.
[2020-06-14] VITALS (50 sets, daily range): BP systolic 64–144; BP diastolic 35–100; PULSE 67–149; RESP 16–29; TEMP 35.9–37; O2SAT 78–98
--- NOTE | 2020-06-14 04:47 | PC.NURSE ---
ACTIVITY Patient has been sleeping soundly with CPAP on all of shift. Patients morning labs drawn and patient going back to sleep. Call light in reach.
[2020-06-14] MEDS: levoFLOXacin 500 mg Tablet PO (06:35)
--- NOTE | 2020-06-14 06:47 | PC.NURSE ---
EVENT Patients call light went off. Patient was standing at side of bed without assistance. Patient stated that he could not find his call light under his gown until he had gotten up to bedside commode. Patient voided and defecated in the bedside commode. Patient was helped back to bed and bed alarm was set. Patient stated that he knew he should not get up without assistance, but he was about to pop. Patient alert and oriented and is able to use his call light.
[2020-06-14 07:10] LABS: C Reactive Protein 2.9 mg/L (0.0-4.9); Creatine Phosphokinase 61 U/L (39-308); Ferritin 426 ng/mL (30-400); Lactate Dehydrogenase 325 U/L (135-225); NT Pro B Type Natriuretic Pept 845 pg/mL (0-450)
[2020-06-14] MEDS: ferrous gluconate 324 mg Tablet PO ×2 (08:20→17:22)
[2020-06-14] MEDS: ascorbic acid 500 mg Tablet PO (08:22)
[2020-06-14] MEDS: atorvastatin 40 mg Tablet 20 MG PO (08:22)
[2020-06-14] MEDS: aspirin 81 mg EC Tablet PO (08:22)
[2020-06-14] MEDS: apixaban 5 mg Tablet 2.5 MG PO ×2 (08:22→17:22)
[2020-06-14] MEDS: amiodarone 200 mg Tablet 100 MG PO (08:22)
[2020-06-14] MEDS: cilostazol 100 mg Tablet PO ×2 (08:23→17:22)
[2020-06-14] MEDS: tamsulosin 0.4 mg Capsule PO (08:23)
[2020-06-14] MEDS: zinc gluconate 50 mg Tablet PO (08:23)
[2020-06-14] MEDS: benzonatate 100 mg Capsule PO ×3 (08:23→20:25)
[2020-06-14] MEDS: metoprolol tartrate 50 mg Tablet PO (08:23)
--- NOTE | 2020-06-14 08:35 | P.PN_ITS ---
Subjective Subjective: Interval history: Oxygen requirement decreasing, on 4 L NC, did well overnight, inflammatory markers continue to trend down, hemodynamically stable. Present for physical therapy evaluation today, patient tolerated exertion and ambulation fairly well, some noted desaturation but compensated quickly, noted tachycardia with heart rates in the 120s. Patient states that this is something that he has dealt with in the past even before the infection setting. Primary care provider and nutrition instructor have been adjusting his beta- gino dosing. It sounds like he developed bradycardia with increased doses of amiodarone.. Medications: Reviewed: Yes Medication Review Details: Active Medications Generic Name Dose Route Start Last Admin Trade Name Freq PRN Reason Stop Dose Admin Acetaminophen 650 mg 06/08/20 17:54 Tylenol PO Q6H PRN Mild/Mod Pain Or Temp >/= 101 Amiodarone HCl 100 mg 06/09/20 09:00 06/14/20 08:22 Cordarone PO 100 mg DAILY MARGARITA Administration Apixaban 2.5 mg 06/12/20 18:00 06/14/20 08:22 Eliquis PO 2.5 mg BID MARGARITA Administration Ascorbic Acid 500 mg 06/08/20 17:00 06/14/20 08:22 Vitamin C PO 500 mg DAILY MARGARITA Administration Aspirin 81 mg 06/09/20 09:00 06/14/20 08:22 Aspirin Ec PO 81 mg DAILY MARGARITA Administration Atorvastatin Calci um 20 mg 06/09/20 09:00 06/14/20 08:22 Lipitor PO 20 mg DAILY MARGARITA Administration Benzonatate 100 mg 06/08/20 21:00 06/14/20 08:23 Tessalon Pearls PO 100 mg TID MARGARITA Administration Bisacodyl 10 mg 06/08/20 17:54 Dulcolax PO DAILY PRN CONSTIPATION Cilostazol 100 mg 06/08/20 18:00 06/14/20 08:23 Pletal PO 100 mg BID MARGARITA Administration Dexamethasone 3 mg 06/11/20 17:15 06/12/20 17:53 Decadron IVP 3 mg Q24H MARGARITA Administration Famotidine 20 mg 06/09/20 09:30 06/13/20 22:00 Pepcid Inj IVP 20 mg Q12H MARGARITA Administration Ferrous Gluconate 324 mg 06/08/20 18:00 06/14/20 08:20 Ferrous Gluconat e PO 324 mg BIDWM MARGARITA Administration Haloperidol Lactat e 1 mg 06/11/20 12:20 06/12/20 10:38 Haldol Inj IM 1 mg Q4H PRN Administration AGITATION Sodium Chloride 1,000 mls @ 75 ml s/hr 06/09/20 12:30 06/10/20 13:59 Sodium Chloride 0.9% IV 0 mls/hr .[id number] MARGARITA Infusion Dexmedetomidine HC l 400 mcg/ 104 mls @ 0 mls/h r 06/11/20 16:15 06/13/20 05:00 Sodium Chloride IV 0 mcg/kg/hr .Q0M MARGARITA 0 mls/hr Titration Protocol Per Protocol Lactulose 10 gm 06/08/20 17:54 Constulose PO DAILY PRN CONSTIPA Levofloxacin 500 mg 06/11/20 08:15 06/14/20 06:35 Levaquin PO 500 mg DAILY@0600 MARGARITA Administration Protocol Metoprolol Tartrat e 50 mg 06/13/20 18:00 06/14/20 08:23 Lopressor PO 50 mg BID MARGARITA Administration Olanzapine 10 mg 06/13/20 23:00 Zyprexa PO PRN MARGARITA Ondansetron HCl 4 mg 06/08/20 17:54 Zofran IVP Q8H PRN vomiting, or N/V if npo Fluticasone/Salmet alvaro 1 puff 06/08/20 20:00 06/13/20 22:02 Advair Diskus 25 0-50 INHALATION 1 puff BID.RESPIRATORY S CH Administration Tamsulosin HCl 0.4 mg 06/09/20 09:00 06/14/20 08:23 Flomax PO 0.4 mg DAILY MARGARITA Administration Tiotropium [place] 18 mcg 06/09/20 08:00 06/13/20 10:03 Spiriva INHALATION 1 puff DAILY.RESPIRATORY MARGARITA Administration Zinc Gluconate 50 mg 06/08/20 17:00 06/14/20 08:23 Zinc Gluconate PO 50 mg DAILY MARGARITA Administration No Known Allergies Allergy (Unverified 11/03/19 12:35) Vitals/I&O/Wt Last Vital Signs Temp 96.7 F L 06/14/20 01:12 Pulse 87 06/14/20 06:00 Resp 18 06/14/20 06:00 BP 134/96 06/14/20 06:30 Pulse Ox 86 L 06/14/20 06:30 06/13/20 06/14/20 06/14/20 22:59 06:59 14:59 Intake Total 600 / 1080 Output Total 100 / 100 Balance 500 / 980 Weight last 48 hrs Weight 54.794 kg Weight 53.977 kg Physical Exam Const: COMMON NORMALS: no acute distress, patient oriented x3 and alert GENERAL APPEARANCE: cooperative and comfortable ORIENTATION/CONSCIOUSNESS: Yes awake HENMT: COMMON NORMALS: normocephalic and atraumatic HEAD & SCALP: normocephalic and atraumatic Eye: COMMON NORMALS: Equal, round and reactive pupils present, EOMs intact bilaterally and conjunctivae normal CONJUNCTIVA: Yes conjunctivae normal PUPIL: Yes Equal, round and reactive pupils present Neck/C-Spine: COMMON NORMALS: full ROM GENERAL: Yes normal visual inspection and Yes trachea midline Resp: COMMON NORMALS: No retractions and No use of accessory muscles EFFORT & INSPECTION: Yes symmetric chest movement and Yes tachypneic (intermittently) AUSCULTATION: diminished lung sounds OTHER: -intermittently hypoxic particularly with exertion but compensates fairly well with rest, on 4 L NC Cardio: COMMON NORMALS: regular rate, regular rhythm, S1 normal heart sound present, S2 normal heart sound present and No murmurs present (Cardio) RATE: regular rate RHYTHM: regular rhythm HEART SOUNDS: S1 normal heart sound present and S2 normal heart sound present GI: COMMON NORMALS: Normal to inspection, nondistended, normoactive bowel sounds present, Soft to palpation and non-tender INSPECTION: Yes central obesity PALPATION: Yes Soft to palpation Extremity: COMMON NORMALS: normal to inspection, no clubbing, cyanosis or edema and no pedal edema Neuro: COMMON NORMALS: patient oriented x3, moves all extremities, no focal motor deficits, no sensory deficits noted and gait normal SENSORIUM/ORIENTATION: Yes alert Psych: COMMON NORMALS: mental status grossly normal, Normal thought process present, cooperative, normal affect and speech normal SPEECH: Yes normal speech THOUGHT PROCESS: Normal thought process present Skin: COMMON NORMALS: no rashes or lesions noted, no jaundice, no petechiae and no mottling GENERAL SKIN EXAM: no rashes or lesions noted Urinary Catheter Management^: Lantigua: Cath Placed During This Visit: yes, but has since been removed by the nurse Reason for Continuing Indwelling Catheter: Decision to DC Catheter Urinary Catheter Date of Insertion: 06/09/20 Urinary Catheter Time of Insertion: 16:09 Date Urinary Catheter Removed: 06/10/20 Time Urinary Catheter Discontinued: 18:35 Data : 06/12/20 04:17 06/12/20 04:17 Micro: Microbiology 06/08/20 13:10 Blood Culture - Final Blood NO GROWTH AFTER 5 DAYS 06/08/20 11:47 Blood Culture - Final Blood NO GROWTH AFTER 5 DAYS A&P Assessment and plan (1) COVID-19: -Found to be positive for COVID-19 at outside facility, rapid testing here negative -Isolation precautions -Continue supportive care including zinc, vitamin C, supplemental oxygen support, inhaler treatments. Steroids discontinued due to concern for steroid- induced psychosis -Close monitoring of respiratory status -Continue to monitor vital signs -Overall downward trend in inflammatory markers -Wean off supplemental oxygen as tolerated, home oxygen evaluation tomorrow as continues to require supplemental oxygen support -Telemetry monitoring -completed 5 days of Remdesevir Status: Acute (2) Delirium: -Suspicious for ICU delirium with component of steroid psychosis -off dexamethasone, significant improvement in mental status today -Reorient as needed, strict fall precautions -Precedex drip and UE restraints discontinued this AM, no Haldol required since yesterday, sitter as needed Status: Resolved (3) Hypoxia: -Noted above; improving Status: Acute (4) ARDS (adult respiratory distress syndrome): -worsening findings on repeat imaging though patient clinically stable -Treatment of infection as noted above Status: Acute (5) Atrial fibrillation: -Telemetry monitoring, continue to monitor vital signs -Echo done shows ejection fraction of 80% -On amiodarone and metoprolol. Noted tachycardia today particularly with exert ion. Per his report it seems that he was bradycardic with increased doses of amiodarone so we will keep this dose at 100 mg daily. May increased metoprolol to 75 mg BID -Has been unable to tolerate anticoagulation in the past, follows up with Dr. Jacques Status: Chronic Qualifiers: Atrial fibrillation type: unspecified Qualified Code(s): I48.91 - Unspecified atrial fibrillation (6) Hypertension: -Continue to monitor vital signs -Continue oral antihypertensives Status: Chronic Qualifiers: Hypertension type: essential hypertension Qualified Code(s): I10 - Essential (primary) hypertension (7) Hyperlipidemia: -on statin Status: Chronic Qualifiers: Hyperlipidemia type: mixed hyperlipidemia Qualified Code(s): E78.2 - Mixed hyperlipidemia Additional A&P Information -History of prior intracranial hemorrhage status post aneurysm clipping. Head CT negative for acute hemorrhage, noted encephalomalacia -History of peripheral vascular disease; continue aspirin, statin, cilostazol -Physical deconditioning due to acute illness, PT evaluation appreciated, strict fall precautions -cardiac diet as tolerated -GI ppx with famotidine -DVT ppx with Eliquis -Dispo: home -Code status: FULL code -updated Aracelis Nunn ([phone]) over the phone on patient's clinical status. Anticipate d/c tomorrow if continued stability/improvement. Reviewed need for continued monitoring of temperature, pulse oximetry on return home. Attestations Medical Necessity Statement*: Patient requires hospitalization for continued management of COVID-19 infection, physical deconditioning. Time Spent in Patient Care: 16 - 35 minutes (>than 50% of time spent in counselling and/or direct pt care on unit) . Coding Level of Care Code Acute Manager Of Corporate Communications for g Fwd 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
--- NOTE | 2020-06-14 11:28 | PC.NURSE ---
Physical Therapy in room working with patient at this time.
[2020-06-14] MEDS: metoprolol tartrate 50 mg Tablet 75 MG PO (17:22)
[2020-06-14] MEDS: famotidine 20 mg/2 mL INJ IVP (20:30)
[2020-06-15] VITALS (28 sets, daily range): BP systolic 102–157; BP diastolic 73–97; PULSE 74–126; RESP 17–27; TEMP 36.4–36.6; O2SAT 78–97
[2020-06-15] MEDS: levoFLOXacin 500 mg Tablet PO (05:25)
[2020-06-15] MEDS: ferrous gluconate 324 mg Tablet PO (07:18)
[2020-06-15] MEDS: aspirin 81 mg EC Tablet PO (08:27)
[2020-06-15] MEDS: ascorbic acid 500 mg Tablet PO (08:27)
[2020-06-15] MEDS: cilostazol 100 mg Tablet PO (08:27)
[2020-06-15] MEDS: amiodarone 200 mg Tablet 100 MG PO (08:27)
[2020-06-15] MEDS: benzonatate 100 mg Capsule PO (08:27)
[2020-06-15] MEDS: apixaban 5 mg Tablet 2.5 MG PO (08:28)
[2020-06-15] MEDS: atorvastatin 40 mg Tablet 20 MG PO (08:29)
[2020-06-15] MEDS: zinc gluconate 50 mg Tablet PO (08:30)
[2020-06-15] MEDS: metoprolol tartrate 50 mg Tablet 75 MG PO (08:30)
[2020-06-15] MEDS: tamsulosin 0.4 mg Capsule PO (08:33)
[2020-06-15] MEDS: famotidine 20 mg/2 mL INJ IVP (08:33)
--- NOTE | 2020-06-15 09:46 | PM.DCS ---
Discharge Providers Date of Admission: 06/08/20 12:38 Date of Discharge: June 15, 2020 Attending Provider at Admission: Mario Johnson MD Attending Provider at Discharge: Kimi Ash MD Consults: None Primary Care Provider: Hardy Connolly MD Diagnoses at Discharge Discharge Diagnosis (1) COVID-19: Status: Acute Problem details: -Found to be positive for COVID-19 at outside facility, rapid testing here negative -Isolation precautions -Continue supportive care including zinc, vitamin C, supplemental oxygen support, inhaler treatments. Steroids discontinued due to concern for steroid-induced psychosis -Close monitoring of respiratory status -Continue to monitor vital signs -Overall downward trend in inflammatory markers -Wean off supplemental oxygen as tolerated, home oxygen evaluation today as continues to require supplemental oxygen support -Telemetry monitoring -completed 5 days of Remdesevir (2) Delirium: Status: Resolved Problem details: -Suspicious for ICU delirium with component of steroid psychosis -off dexamethasone, significant improvement in mental status today -Reorient as needed, strict fall precautions -Precedex drip and UE restraints discontinued, no Haldol required x > 48 hrs, sitter discontinued (3) Hypoxia: Status: Acute Problem details: -Noted above; improving (4) ARDS (adult respiratory distress syndrome): Status: Acute Problem details: -worsening findings on repeat imaging though patient clinically stable -Treatment of infection as noted above (5) Atrial fibrillation: Status: Chronic Problem details: -Telemetry monitoring, continue to monitor vital signs -Echo done shows ejection fraction of 80% -On amiodarone and metoprolol. Noted tachycardia today particularly with exertion. Per his report it seems that he was bradycardic with increased doses of amiodarone so we will keep this dose at 100 mg daily. May increased metoprolol to 75 mg BID -Has been unable to tolerate anticoagulation in the past, follows up with Dr. Jacques Qualifiers: Atrial fibrillation type: unspecified Qualified Code(s): I48.91 - Unspecified atrial fibrillation (6) Hypertension: Status: Chronic Problem details: -Continue to monitor vital signs -Continue oral antihypertensives Qualifiers: Hypertension type: essential hypertension Qualified Code(s): I10 - Essential (primary) hypertension (7) Hyperlipidemia: Status: Chronic Problem details: -on statin Qualifiers: Hyperlipidemia type: mixed hyperlipidemia Qualified Code(s): E78.2 - Mixed hyperlipidemia Other Information Additional DC diagnoses/information: -History of prior intracranial hemorrhage status post aneurysm clipping. Head CT negative for acute hemorrhage, noted encephalomalacia -History of peripheral vascular disease; continue aspirin, statin, cilostazol -Physical deconditioning due to acute illness, PT evaluation appreciated, strict fall precautions Reason for Visit Reason for Visit: covid + low o2 sent by urgent care Hospital Course Hospital Course: Patient was admitted to the viral ICU secondary to having been found positive for COVID-19 infection following testing by PCP with subsequent development of hypoxia, respiratory distress and changes on imaging consistent with ARDS. Patient was treated with a 5-day course of Remdesevir, in addition to supportive care including IV steroids, zinc, vitamin C, inhaler treatments as needed, antitussives, supplemental oxygen support. Unfortunately during the course of his hospital stay he developed delirium part of which could be due to being in an ICU setting, related to infection versus medication induced. He required one-on-one monitoring, Precedex drip, soft wrist restraints, Haldol as needed. In about 12 to 24 hours following discontinuation of steroids patient's encephalopathy improved significantly and is currently back to his baseline mental status. Due to infection as well as prolonged hospital stay he has developed physical deconditioning, evaluated by physical therapy. He continues to require supplemental oxygen support, was not previously oxygen dependent so home oxygen evaluation done prior to discharge. Chest x-ray continues to show evidence of bilateral patchy opacities but overall patient's clinical status has improved. He will need time for continued recuperation and isolation precautions on return home. Recommend close follow-up with his primary care provider, family educated on need for close monitoring of oxygen levels, temperature and other vital signs if possible. Patient is to seek medical attention immediately should he develop fever, any respiratory symptoms, persistent hypoxia. Due to increased risk of thrombosis he was covered with Eliquis which will be continued for 2 more weeks. He is encouraged to continue to be compliant with flutter valve and incentive spirometry as well as appropriate pulmonary toilet. In light of acute illness, physical deconditioning, prolonged hospitalization, home health services have been requested. Physical Exam Const: COMMON NORMALS: no acute distress, patient oriented x3 and alert GENERAL APPEARANCE: cooperative and comfortable ORIENTATION/CONSCIOUSNESS: Yes awake OTHER: -very pleasant, in good spirits HENMT: COMMON NORMALS: normocephalic and atraumatic HEAD & SCALP: normocephalic and atraumatic Eye: COMMON NORMALS: Equal, round and reactive pupils present, EOMs intact bilaterally and conjunctivae normal CONJUNCTIVA: Yes conjunctivae normal PUPIL: Yes Equal, round and reactive pupils present Neck/C-Spine: COMMON NORMALS: full ROM GENERAL: Yes normal visual inspection and Yes trachea midline Resp: COMMON NORMALS: No retractions and No use of accessory muscles EFFORT & INSPECTION: Yes symmetric chest movement and Yes tachypneic (intermittently) AUSCULTATION: diminished lung sounds OTHER: -intermittently hypoxic particularly with exertion but compensates fairly well with rest, on 4 L NC Cardio: COMMON NORMALS: regular rate, regular rhythm, S1 normal heart sound present, S2 normal heart sound present and No murmurs present (Cardio) RATE: regular rate RHYTHM: regular rhythm HEART SOUNDS: S1 normal heart sound present and S2 normal heart sound present GI: COMMON NORMALS: Normal to inspection, nondistended, normoactive bowel sounds present, Soft to palpation and non-tender INSPECTION: Yes central obesity PALPATION: Yes Soft to palpation Extremity: COMMON NORMALS: normal to inspection, no clubbing, cyanosis or edema and no pedal edema Neuro: COMMON NORMALS: patient oriented x3, moves all extremities, no focal motor deficits, no sensory deficits noted and gait normal SENSORIUM/ORIENTATION: Yes alert Psych: COMMON NORMALS: mental status grossly normal, Normal thought process present, cooperative, normal affect and speech normal SPEECH: Yes normal speech THOUGHT PROCESS: Normal thought process present Skin: COMMON NORMALS: no rashes or lesions noted, no jaundice, no petechiae and no mottling GENERAL SKIN EXAM: no rashes or lesions noted Urinary Catheter Management^: Lantigua: Cath Placed During This Visit: yes, but has since been removed by the nurse Reason for Continuing Indwelling Catheter: Decision to DC Catheter Urinary Catheter Date of Insertion: 06/09/20 Urinary Catheter Time of Insertion: 16:09 Date Urinary Catheter Removed: 06/10/20 Time Urinary Catheter Discontinued: 18:35 Discharge Data Data Completed and Pending: Completed Studies During Hospitalization Category Date Time Status CT angio chest PE protcl [id number] Urge nt Cat Scan 06/08/20 12:[address] head wo con* 7 0450 Routine Cat Scan 06/12/20 12:10 Completed XR chest 1V bhavna ble 41737 Q48H Exams 10/02/20 06:00 Completed XR chest 1V bhavna ble [id number] Q48H Exams 06/11/20 06:00 Completed XR chest 1V bhavna ble [id number] Q48H Exams 06/13/20 06:00 Completed XR chest 1V bhavna ble [id number] Stat Exams 06/08/20 11:13 Completed CV echo complete* [id number] Routine Ultrasound 06/09/20 18:10 Completed Pending at discharge Category Date Time Status Sputum Culture an d Gram Stain Stat Lab 06/08/20 12:44 Uncollected Vitals: Last Vital Signs Temp 97.9 F 06/15/20 07:49 Pulse 81 06/15/20 05:56 Resp 20 H 06/15/20 05:56 BP 136/79 06/15/20 05:56 Pulse Ox 94 06/15/20 05:56 Discharge Plan Discharge Patient Disposition: Home Health Service Condition: Stable Prescriptions: New Advair Diskus 250-50 mcg/dose Blister With Device 1 puff inhalation BID.RESPIRATORY Qty: 1 RF: 0 Vitamin C 500 mg Tablet 500 mg PO DAILY Qty: 30 RF: 0 metoprolol tartrate 50 mg Tablet 50 mg PO BID Qty: 60 RF: 0 zinc gluconate 50 mg Tablet 50 mg PO DAILY Qty: 30 RF: 0 bisacodyl 5 mg Tablet,Delayed Release (Dr/Ec) 10 mg PO DAILY PRN (Reason: Constipation) Qty: 60 RF: 0 Spiriva with HandiHaler 18 mcg Capsule, W/Inhalation Device 18 mcg inhalation DAILY.RESPIRATORY Qty: 1 RF: 0 ferrous gluconate 324 mg (37.5 mg iron) Tablet 324 mg PO BIDWM Qty: 60 RF: 0 Eliquis 5 mg Tablet 2.5 mg PO BID Qty: 28 RF: 0 prednisone 10 mg tablet See Rx Instructions .ROUTE .COMPLEX 12 Days Qty: 30 RF: 0 Continued cilostazol 100 mg tablet 100 mg PO BID RF: 0 aspirin [Adult Low Dose Aspirin] 81 mg tablet,delayed release (DR/EC) 81 mg PO DAILY RF: 0 simvastatin 20 mg tablet 20 mg PO DAILY RF: 0 amiodarone 200 mg tablet 100 mg PO DAILY Qty: 15 RF: 3 Flomax 0.4 mg Capsule 0.4 mg PO DAILY RF: 0 Discontinued metoprolol tartrate 25 mg tablet 12.5 mg PO BID RF: 0 Discharge Orders: Discharge Order (Routine); Ordered 06/15/20 Ordered By: Kimi Ash Other Ambulatory Orders: DME: Oxygen (Order) Location: None Selected Ordered By: Kimi Ash [place]: [facility] [place] Hardy Connolly MD [Primary Care Provider] - 4-7 days (Post hospital discharge follow-up, treated for COVID-19 infection with 5-day course of Remdesevir. ) Discharge Diet: Cardiac Discharge Activity: Increase activity as tolerated, As per PT/OT instructions and Oxygen as instructed Activity Restrictions/Additional Instructions: -Please note that you will need to continue with self-isolation precautions in light of COVID-19 infection. You will also need to continue frequent handwashing, mask wearing and maintaining social distancing. -Please continue to monitor your symptoms at home particularly in terms of shortness of breath, fever/chills, ability to tolerate oral intake. Please maintain adequate hydration particularly with water. -Please seek medical attention immediately should you notice persistently low oxygen levels, persistent fever, inability to tolerate oral intake. Discharge Attestations Time Spent in Discharge Care*: greater than 30 min Specific Discharge Activities: Specific discharge activities: educating patient, educating and/or supporting family/caregiver, discussing with human services case manager/social workers/dc planners, documenting/other paperwork and evaluating patient/reviewing data Status at Discharge: Cognitive status at discharge: cognitively intact, Behavioral status at discharge: cooperative and independent in ADL's, Functional status at discharge: independent ambulation Overall status at discharge: patient is progressing back to baseline Quality Metrics Clinical Quality Measures During this hospital stay, did patient experience: None Coding Level of Care Code Acute Continuous [employer]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
--- NOTE | 2020-06-15 10:57 | PC.SOCIAL ---
IMM Update Pg. 2 of IMM updated and reviewed with patient's via phone. Verbalized understanding.
--- NOTE | 2020-06-20 15:49 | PC.SOCIAL ---
This bond writer spoke with the patient on the phone [phone]. He stated that he was doing well at home. I asked if he had a hospital follow up appointment scheduled for this week, he stated that he does. He sees Dr. Connolly this . We discussed ways to protect himself and others while out in public or going to the Dr. office such as, mask wearing, covering coughs or sneezes, washing hands and surfaces. We also spoke about the different signs and symptoms to watch for while at home such as blue lips or face, trouble breathing or shortness of breath, chest pain or tightness lasting longer than 5 minutes, fever of 104 or higher, confusion or trouble waking. He stated that he plans to be very careful while out in public and will inform his also of the signs and symptoms. We also discussed the different ways to keep up with him immune system. We spoke about healthy eating habits and also spoke about keeping up with immunizations and Dr. follow ups. to end the conversation, we spoke about plasma donation and the benefits of donating. He stated that he ould like to have information on this.
== END 2020-06-15 13:30 | disposition home health service (06) | DRG 871 ==
LOC: ER 11:20 → ICU 13:19
PROVIDERS: Emergency Medicine; Admitting Provider Student in an Organized Health Care Education/Training Program; PCP Family Medicine; Visit Provider Family Medicine
DX: A41.9 Sepsis, unspecified organism (principal); U07.1 COVID-19; J12.89 Other viral pneumonia; J80 Acute respiratory distress syndrome; I48.0 Paroxysmal atrial fibrillation; E78.2 Mixed hyperlipidemia; I10 Essential (primary) hypertension; I73.9 Peripheral vascular disease, unspecified; F17.210 Nicotine dependence, cigarettes, uncomplicated; I95.9 Hypotension, unspecified; R41.0 Disorientation, unspecified; T38.0X5A Adverse effect of glucocorticoids and synthetic analogues, initial encounter; G93.89 Other specified disorders of brain; Z79.82 Long term (current) use of aspirin
CPT/HCPCS: 12345; 36415; 36600; 51702; 70450; 71045; 71275; 80051; 80053; 81001; 82550; 82728; 82803; 82810; 83036; 83540; 83550; 83605; 83615; 83880; 83986; 84145; 84443; 85025; 85378; 85384; 86140; 86403; 87040; 87086; 87426; 87449; 87641; 93005; 93306; 94640; 96372; 96375; 97116; 97162; 99283; A4570; J0456; J0696; J1100; J1630; J1940; J3490; J7030; J7050; Q9967

== ENCOUNTER 2020-09-20 09:46 | Outpatient (CLI) | payer MEDICARE, SELFPAY ==
--- NOTE | 2020-09-20 10:15 | USCV_ITS ---
Edouard Ruiz Age: 79 Gender: M : 1940 Exam Date: 09/20/2020 10:18 Ordering Phys: Woody Jacques MD ([email or web address]) Technologist: Ying Barros Exam Location: [facility] [place] Indication: CLAUDICATION Risk Factors: SMOKER 59 YEARS/I PACK Previous Vascular Surgery: NONE RIGHT LEFT BP: 123.0 / 66.00 BP: 92.00/ 58.00 0 Waveform Velocity (cm/s) Velocity (cm/s) Waveform Biphasic 60.7 Iliac Prox 79.4 Biphasic Biphasic 86.8 Iliac Mid 82.5 Biphasic Biphasic 144.1 Iliac Distal 73.1 Biphasic Biphasic 215.7 HULL AND DECK REMOVER 296.0 Monophasic SFA Prox 19.0 Monophasic SFA Dist 13.1 Monophasic Monophasic 74.0 POP 32.4 Monophasic Monophasic 42.1 RV SERVICE TECHNICIAN 31.3 Monophasic Monophasic 19.0 DPA 23.8 Monophasic 0.6 DEMETRICE 0.7 FINDINGS RT RV SERVICE TECHNICIAN 70 RT DPA 50 LT RV SERVICE TECHNICIAN 80 LT DPA 50 No Doppler flow signals in the proximal, mid and distal SFA on the right side and distal SFA on the left side. Sluggish flow in the left mid SFA. Monophasic and continuous waveforms in the popliteal and infrapopliteal vessels bilaterally. abnormal resting ABIs bilaterally, 0.6 on the right side and 0.7 on the left side Moderate to heavy plaques in the common femoral and superficial femoral arteries bilaterally CONCLUSIONS 1. 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 2. Features of total occlusion of the distal superficial femoral artery on the left side with the collateral filling of popliteal and infrapopliteal vessels. No similar previous studies are available for comparison Dr Woody Jacques MD [facility] (Electronically Signed) Final Date: 20 September 2020 20:14 S
--- NOTE | 2020-09-20 11:00 | USCV_ITS ---
Edouard Ruiz Age: 79 Gender: M : 1940 Exam Date: 09/20/2020 09:55 Ordering Phys: Woody Jacques MD ([email or web address]) Technologist: Ying Barros [place] [facility] [place]: RECHECK OF CCA STENOSIS Risk Factors: Unknown Previous Vascular Surgery: None Right Brachial BP: / Left Brachial BP: / Right Left Velocity (cm/s) Spectral Plaque Velocity (cm/s) Spectral Plaque Syst/Diast Broadening Syst/Diast Broadening 88.20/ 23.20 Hetro Prox CCA 97.40 / 28.80 93.70/ 23.20 Hetro Mid CCA 81.90 / 26.00 69.50/ 15.40 Hetro Distal CCA 106.70/ 21.10 88.90/ 20.30 Hetro Prox ICA 120.30/ 28.50 84.50/ 22.60 Hetro Mid ICA 106.70/ 32.20 80.50/ 21.90 Distal ICA 115.40/ 29.80 100.30 ECA 103.00 0.95 ICA/CCA 1.47 Antegrade Vertebral Retrograde 55.20/ 10.70 cm/s / cm/s Bi Subclavian Sevier 124.4 194.4 0 0 FINDINGS Moderate to heavy dense plaques of the left bifurcation and the proximal internal carotid artery. Mild to moderate dense plaques in the right bifurcation and proximal internal carotid artery. Retrograde flow in the left vertebral artery. Normal Doppler flow velocities in the external carotid arteries bilaterally CONCLUSIONS Moderate to heavy dense plaques at the left bifurcation and the proximal internal carotid arterywith velocity elevation consistent with 16-49% stenosis. Mild to moderate dense plaques in the right bifurcation and proximal internal carotid artery. Retrograde flow in the left vertebral artery may suggest high- grade proximal subclavian artery stenosis. Compared to the study from 01/01/2017, there is worsening of plaque buildup bilaterally. The left vertebral artery was not visualized with the previous study. Dr Woody Jacques MD [facility] (Electronically Signed) Final Date: 20 September 2020 20:27 S
== END 2020-09-20 09:47 | disposition home or self-care (01) ==
LOC: US 09:50
PROVIDERS: PCP Family Medicine; Visit Provider Internal Medicine Cardiovascular Disease
DX: M79.604 Pain in right leg (principal); M79.605 Pain in left leg; I65.23 Occlusion and stenosis of bilateral carotid arteries
CPT/HCPCS: 93880; 93925

== ENCOUNTER 2021-10-04 06:36 | Outpatient (CLI) | payer MEDICARE, SELFPAY ==
--- NOTE | 2021-10-04 07:00 | USCV_ITS ---
Joseph Nunn Age: 80 Gender: M : 1940 Exam Date: 10/04/2021 06:41 Ordering Phys: Hardy Connolly MD Technologist: Exam [place] [facility] [place] Indication: PAD RIGHT LEFT Brachial 169.00 mmHg Brachial 150.00 mmHg Pressure (mmHg) Waveform Pressure (mmHg) Waveform 88.00 MARGARINE CHURN OPERATOR 111.00 71.00 DPA 109.00 0.52 Ankle/Brachial Index 0.66 110.00 Pre-Exercise Toe Pressure 79.00 0.65 Pre-Exercise Toe/Brachial Index 0.47 FINDINGS Abnormal resting ABIs bilaterally of 0.52 on the right and 0.66 on the left side. Diminished resting TBI's bilaterally-0.65 on the right and 0.47 on the left CONCLUSIONS 1. Abnormal resting DEMETRICE and TBI on the right side, suggesting moderately severe peripheral arterial disease. 2. Abnormal resting DEMETRICE and TBI on the left side suggesting moderate peripheral arterial disease. Consider exercise DEMETRICE, to evaluate the functional status, if clinically gated. Dr Woody Jacques MD [facility] (Electronically Signed) Final Date: 05 October 2021 09:39 S
== END 2021-10-04 06:37 | disposition home or self-care (01) ==
LOC: RAD 06:41
PROVIDERS: PCP Family Medicine; Visit Provider Family Medicine
DX: I73.9 Peripheral vascular disease, unspecified (principal)
CPT/HCPCS: 93922

== ENCOUNTER → 2022-05-01 09:59 | Outpatient (BNVA) | payer MEDICARE, SELFPAY | PROVIDERS: PCP Family Medicine; Visit Provider Nurse Practitioner Family | DX: I48.0 Paroxysmal atrial fibrillation (principal); I10 Essential (primary) hypertension; I73.9 Peripheral vascular disease, unspecified; F17.200 Nicotine dependence, unspecified, uncomplicated | CPT/HCPCS: 99214 ==

== ENCOUNTER 2022-12-12 10:40 | Outpatient (CLI) | payer MEDICARE, SELFPAY ==
--- NOTE | 2022-12-12 11:00 | USCV_ITS ---
Joseph Nunn Age: 82 Gender: M : 1940 Exam Date: 12/12/2022 11:01 Ordering Phys: Woody Jacques MD ([email or web address]) Technologist: Kosta Petersen [place] [facility] [place]ication: carotid occlusion Risk Factors: Previous Vascular Surgery: Right Brachial BP: / Left Brachial BP: / Right Left Velocity (cm/s) Spectral Plaque Velocity (cm/s) Spectral Plaque Syst/Diast Broadening Syst/Diast Broadening 60.60/ 16.30 Prox CCA 60.80 / 14.80 68.40/ 14.80 Mid CCA 74.80 / 21.80 65.30/ 18.60 Distal CCA 95.90 / 20.90 73.70/ 23.00 Prox ICA 113.60/ 24.30 93.90/ 15.80 Mid ICA 142.00/ 32.90 72.50/ 22.30 Distal ICA 83.20 / 18.40 76.10 ECA 80.00 1.37 ICA/CCA 1.90 Antegrade Vertebral Retrograde 89.20/ 14.90 cm/s 48.80/ 5.60 cm/s Tri Subclavian Divide 118.6 37.30 0 FINDINGS Moderate dense plaques at the right bifurcation and proximal internal carotid artery Moderate heterogenous plaques of the left bifurcation and internal carotid artery Intimal thickening in the coronary arteries bilaterally Retrograde flow in the left vertebral artery Significantly diminished Doppler velocity in the left subclavian artery. CONCLUSIONS #1. Moderate heterogenous plaques of the left bifurcation and ICA with the Doppler features suggesting 50 to 69% stenosis. #2. Moderate dense plaque of the right bifurcation and proximal internal carotid artery suggesting less than 50% stenosis. #3. 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 Dr Woody Jacques MD [facility] (Electronically Signed) Final Date: 19 December 2022 00:16 S
== END 2022-12-12 10:41 | disposition home or self-care (01) ==
PROVIDERS: PCP Family Medicine; Visit Provider Internal Medicine Cardiovascular Disease
DX: I65.23 Occlusion and stenosis of bilateral carotid arteries (principal); I77.9 Disorder of arteries and arterioles, unspecified
CPT/HCPCS: 93880; 99214

== ENCOUNTER → 2023-06-09 10:55 | Outpatient (BNVA) | payer MEDICARE, SELFPAY | PROVIDERS: PCP Family Medicine; Visit Provider Internal Medicine Cardiovascular Disease | DX: R07.9 Chest pain, unspecified (principal); I48.0 Paroxysmal atrial fibrillation; E78.2 Mixed hyperlipidemia; I65.23 Occlusion and stenosis of bilateral carotid arteries; F17.200 Nicotine dependence, unspecified, uncomplicated; I73.9 Peripheral vascular disease, unspecified; I10 Essential (primary) hypertension; R00.1 Bradycardia, unspecified | CPT/HCPCS: 93005; 99214 ==

== ENCOUNTER → 2023-12-24 10:10 | Outpatient (BNVA) | payer MEDICARE, SELFPAY | PROVIDERS: PCP Family Medicine; Visit Provider Internal Medicine Cardiovascular Disease | DX: E78.2 Mixed hyperlipidemia (principal); I10 Essential (primary) hypertension; I48.0 Paroxysmal atrial fibrillation; I65.23 Occlusion and stenosis of bilateral carotid arteries; F17.200 Nicotine dependence, unspecified, uncomplicated; Z79.01 Long term (current) use of anticoagulants | CPT/HCPCS: 99214 ==

== ENCOUNTER 2023-12-29 07:48 | Outpatient (CLI) | payer MEDICARE, SELFPAY ==
--- NOTE | 2023-12-29 07:45 | USCV_ITS ---
Joseph Nunn Age: 83 Gender: M : 1940 Exam Date: 12/29/2023 08:03 Ordering Phys: Woody Jacques MD ([email or web address]) Technologist: R Exam Location: [facility] [place] Indication: Stenosis Risk Factors: Previous Vascular Surgery: Right Brachial BP: / Left Brachial BP: / Right Left Velocity (cm/s) Spectral Plaque Velocity (cm/s) Spectral Plaque Syst/Diast Broadening Syst/Diast Broadening 72.60/ 15.50 Prox CCA 71.80 / 18.20 88.00/ 20.60 Mid CCA 108.00/ 28.70 88.00/ 24.50 Distal CCA 81.00 / 21.50 78.30/ 22.20 Prox ICA 123.00/ 32.70 69.90/ 21.00 Mid ICA 128.90/ 35.50 63.60/ 16.30 Distal ICA 89.10 / 19.50 70.90 ECA 95.40 0.90 ICA/CCA 1.60 Antegrade Vertebral Retrograde 73.20/ 14.00 cm/s 49.70/ 8.60 cm/s Tri Subclavian Bi 94.40 74.70 FINDINGS Comparison:. 12/12/22 Diffuse plaque throughout the carotid arteries, left greater than right. Mild elevation if velocities. Retrograde left vertebral artery flow. Abnormal left subclavian artery wave form. CONCLUSIONS Bilateral ICA stenosis less than 50%. Right ICA stenosis near 50%. Retrograde left vertebral artery. Abnormal waveform left subclavian artery, suspect significant stenosis. Dr. Cami Emerson DO (Electronically Signed) Final Date: 29 December 2023 09:06 S
== END 2023-12-29 07:49 | disposition home or self-care (01) ==
LOC: RAD 07:48
PROVIDERS: PCP Family Medicine; Visit Provider Internal Medicine Cardiovascular Disease
DX: I65.23 Occlusion and stenosis of bilateral carotid arteries (principal); I77.9 Disorder of arteries and arterioles, unspecified
CPT/HCPCS: 93880

== ENCOUNTER → 2024-06-23 10:05 | Outpatient (BNVA) | payer MEDICARE, SELFPAY | PROVIDERS: PCP Family Medicine; Visit Provider Nurse Practitioner Family | DX: I10 Essential (primary) hypertension (principal); I48.0 Paroxysmal atrial fibrillation; Z86.16 Personal history of COVID-19; Z79.01 Long term (current) use of anticoagulants; Z72.0 Tobacco use | CPT/HCPCS: 99214 ==

== ENCOUNTER → 2025-01-26 14:40 | Outpatient (BNVA) | payer MEDICARE, SELFPAY | PROVIDERS: PCP Family Medicine; Visit Provider Internal Medicine Cardiovascular Disease | DX: I48.0 Paroxysmal atrial fibrillation (principal); Z79.01 Long term (current) use of anticoagulants; E78.2 Mixed hyperlipidemia; I10 Essential (primary) hypertension; I65.23 Occlusion and stenosis of bilateral carotid arteries; I77.9 Disorder of arteries and arterioles, unspecified; F17.210 Nicotine dependence, cigarettes, uncomplicated | CPT/HCPCS: 99214 ==

== ENCOUNTER → 2025-08-17 14:42 | Outpatient (BNVA) | payer MEDICARE, SELFPAY | PROVIDERS: PCP Family Medicine; Visit Provider Internal Medicine Cardiovascular Disease | DX: I48.91 Unspecified atrial fibrillation (principal); Z79.01 Long term (current) use of anticoagulants; E78.5 Hyperlipidemia, unspecified; I10 Essential (primary) hypertension; I73.9 Peripheral vascular disease, unspecified; I65.23 Occlusion and stenosis of bilateral carotid arteries; F17.200 Nicotine dependence, unspecified, uncomplicated | CPT/HCPCS: 99204; 99214 ==